=== PATIENT | male | born 1960 | race Caucasian/White ===

== ENCOUNTER 2018-03-17 17:01 | Emergency (ER) | payer OTHER, MEDICAID, SELFPAY ==
[2018-03-17] VITALS (9 sets, daily range): BP systolic 121–144; BP diastolic 62–93; PULSE 55–74; RESP 12–26; TEMP 36.7–37.4; O2SAT 97–100; BMI 20.6
--- NOTE | 2018-03-17 17:47 | DI.RAD.S_ITS ---
PROCEDURE: XR ACUTE ABDOMEN SERIES INDICATIONS: Abdominal pain TECHNIQUE: One view chest and two views of the abdomen were acquired. COMPARISON: None. FINDINGS: Surgical changes and devices: None. Chest: There is uniform opacification of the left lower hemithorax which partially obscured the cardiac silhouette. Calcification of the aortic arch noted. No pneumoperitoneum. Subcentimeter rounded opacities projecting over the bilateral midlung gonzalez, likely represent nipple shadows. Abdomen: The bowel gas pattern appears shifted to the right hemiabdomen and displaced from the left upper quadrant of the abdomen where there is a large uniform opacity. Imaged bowel loops do not appear obstructed. Bones: Multilevel degenerative changes of the lumbar spine. IMPRESSION: Uniform large opacity overlying the left lower hemithorax and left upper quadrant of the abdomen, which appears to displace bowel gas. This is concerning for severe splenomegaly (possibly with a left pleural effusion). Consider correlation with physical exam. Consider followup ultrasound or CT for further evaluation. Dictated by: Donald Santos M.D. on 03/17/2018 at 19:29 Approved by: Donald Santos M.D. on 03/17/2018 at 19:35
--- NOTE | 2018-03-17 18:02 | ED.ABDPAIN ---
HPI - Abdominal Pain <Natanael Graham DO - Last Filed: 03/18/18 09:29> General Chief Complaint: Abdominal Pain Stated Complaint: LUQ Pain Time Seen by Provider: 03/17/18 17:02 Source: patient and EMS Mode of arrival: EMS Limitations: no limitations History of Present Illness HPI narrative: 58-year-old male presents by would be EMS for evaluation of epigastric pain that is reminiscent of prior episodes of pancreatitis. The patient is a long-time drinker and thinks his prior episodes are related to alcohol. He denies any history of gallbladder disease. He has not dizzy nor weak or lightheaded. He denies any provocation or palliation of his discomfort. He does state that he had some loose stool yesterday that was dark in color. He denies the use of Motrin or blood thinners. He denies any history EGD or colonoscopy. MD complaint: abdominal pain Onset (ago): hour(s) Pain Consistency: constant Location: epigastric Severity: moderate Quality: cramping and aching Radiation: none Migration to: no migration Relieving factors: nothing Exacerbating factors: nothing Related Data Previous Rx's Medication Instructions Recorded hydrocodone-acetaminophen 1 tab PO Q4-6H PRN #14 tab 03/17/18 ondansetron [Zofran ODT] 4 mg PO Q6H PRN #14 tab 03/17/18 Allergies Allergy/AdvReac Type Severity Reaction Status Date / Time No Known Drug Allergies Allergy Verified 03/17/18 23:15 Review of Systems <DO Sheridan Zelaya Last Filed: 03/18/18 09:29> Review of Systems All systems reviewed & are unremarkable except as noted in HPI and below Constitutional Denies chills, Denies fever(s), Denies lethargy and Denies weakness Eyes Denies change in vision, Denies eye discharge, Denies irritation and Denies loss of vision ENT Ears, Nose, Mouth, and Throat: Denies change in voice, Denies neck pain and Denies sore throat Cardiovascular Denies chest pain, Denies irregular heart rhythm, Denies lightheadedness, Denies palpitations, Denies dyspnea, Denies dyspnea on exertion and Denies orthopnea Respiratory Denies cough, Denies dyspnea, Denies dyspnea on exertion and Denies wheezing Gastrointestinal Gastrointestinal: Reports abdominal pain, Denies change in bowel habits, Reports diarrhea, Denies nausea and Denies vomiting Genitourinary Denies hematuria, Denies flank pain, Denies urinary incontinence and Denies urinary urgency Musculoskeletal Denies neck pain Integumentary/Breasts Denies pruritus, Denies erythema, Denies rash and Denies wounds Neurologic Denies confusion, Denies loss of vision and Denies weakness Psychiatric Denies anxiety, Denies confusion, Denies depression, Denies homicidal ideation and Denies suicidal ideation Endocrine Denies palpitations Hematologic/Lymphatic Denies easy bruising Allergic/Immunologic Denies wheezing Exam <Natanael Graham, DO - Last Filed: 03/18/18 09:29> Narrative Exam Narrative: GENERAL: This is a well-nourished, well-developed patient, in mild distress. HEAD: Atraumatic. Normocephalic. No temporal or scalp tenderness. EYES: Pupils equal round and reactive. Extraocular motions intact. No scleral icterus. No injection or drainage. ENT: Nose without bleeding, purulent drainage or septal hematoma. Throat without erythema, tonsillar hypertrophy or exudate. Uvula midline. Airway patent. NECK: Trachea midline. No JVD or lymphadenopathy. Supple, nontender, no meningeal signs. CARDIOVASCULAR: Regular rate and rhythm without murmurs, gallops, or rubs. RESPIRATORY: Clear to auscultation. Breath sounds equal bilaterally. No wheezes, rales, or rhonchi. GASTROINTESTINAL: Abdomen soft, mild epigastric pain, nondistended. No hepato-splenomegaly, or palpable masses. No guarding. RECTAL: heme NEG EXTREMITIES: No clubbing, cyanosis, or edema. No joint tenderness, effusion, or edema noted. BACK: Nontender without deformity or crepitance. No flank tenderness. NEURO: AOx3. SKIN: No rash or erythema. Initial Vital Signs Initial Vital Signs: Vital Signs Temperature 99.4 F 03/17/18 17:12 Pulse Rate 55 L 03/17/18 17:12 Respiratory Rate 19 03/17/18 17:12 Blood Pressure 124/71 H 03/17/18 17:12 Pulse Oximetry 97 03/17/18 17:12 <Dayna Haro, DO - Last Filed: 03/18/18 03:12> Initial Vital Signs Initial Vital Signs: Vital Signs Temperature 99.4 F 03/17/18 17:12 Pulse Rate 55 L 03/17/18 17:12 Respiratory Rate 19 03/17/18 17:12 Blood Pressure 124/71 H 03/17/18 17:12 Pulse Oximetry 97 03/17/18 17:12 Course <Natanael Graham DO - Last Filed: 03/18/18 09:29> Orders Ordered: Discontinued Medications Hydrocodone Bitart/Acetaminophen (Vicodin Prepack) 1 bottle MISC SEEINSTR ONE Stop: 03/17/18 19:44 Last Admin: 03/17/18 19:54 Dose: 1 bottle Hydromorphone HCl (Dilaudid) 1 mg IV NOW ONE Stop: 03/17/18 17:55 Last Admin: 03/17/18 18:39 Dose: 1 mg Hydromorphone HCl (Dilaudid) 1 mg IV NOW ONE Stop: 03/17/18 21:40 Last Admin: 03/17/18 21:40 Dose: 1 mg Hydromorphone HCl (Dilaudid) 1 mg IV NOW ONE Stop: 03/17/18 23:16 Last Admin: 03/17/18 23:44 Dose: 1 mg Sodium Chloride (Normal Saline 0.9%) 1,000 mls @ 1,000 mls/hr IV BOLUS ONE Stop: 03/17/18 18:26 Last Infusion: 03/17/18 19:47 Dose: 0 mls/hr Admin: 03/17/18 18:38 Dose: 1,000 mls/hr Thiamine HCl 100 mg/ Dextrose 51 mls @ 204 mls/hr IV NOW ONE Stop: 03/17/18 22:13 Last Admin: 03/17/18 22:39 Dose: 204 mls/hr Ondansetron HCl (Zofran Odt Prepack) 1 bottle MISC SEEINSTR ONE Stop: 03/17/18 19:47 Last Admin: 03/17/18 19:54 Dose: 1 bottle Vital Signs - 8 hr 03/17/18 19:12 03/17/18 19:35 03/17/18 20:56 Temperature Pulse Rate 69 58 L 74 Respiratory Rate 26 H 17 20 Blood Pressure Blood Pressure [Right Arm] 132/79 H 138/79 H 144/75 H Pulse Oximetry 98 97 100 03/17/18 21:06 03/17/18 21:44 03/17/18 22:45 Temperature 98.0 F Pulse Rate 65 69 67 Respiratory Rate 14 16 12 Blood Pressure Blood Pressure [Right Arm] 121/62 H 123/86 H 138/82 H Pulse Oximetry 100 97 100 03/18/18 00:51 Temperature Pulse Rate 65 Respiratory Rate 14 Blood Pressure 132/84 H Blood Pressure [Right Arm] Pulse Oximetry 97 <Dayna Haro, - Last Filed: 03/18/18 03:12> Orders Ordered: Discontinued Medications Hydrocodone Bitart/Acetaminophen (Vicodin Prepack) 1 bottle MISC SEEINSTR ONE Stop: 03/17/18 19:44 Last Admin: 03/17/18 19:54 Dose: 1 bottle Hydromorphone HCl (Dilaudid) 1 mg IV NOW ONE Stop: 03/17/18 17:55 Last Admin: 03/17/18 18:39 Dose: 1 mg Hydromorphone HCl (Dilaudid) 1 mg IV NOW ONE Stop: 03/17/18 21:40 Last Admin: 03/17/18 21:40 Dose: 1 mg Hydromorphone HCl (Dilaudid) 1 mg IV NOW ONE Stop: 03/17/18 23:16 Last Admin: 03/17/18 23:44 Dose: 1 mg Sodium Chloride (Normal Saline 0.9%) 1,000 mls @ 1,000 mls/hr IV BOLUS ONE Stop: 03/17/18 18:26 Last Infusion: 03/17/18 19:47 Dose: 0 mls/hr Admin: 03/17/18 18:38 Dose: 1,000 mls/hr Thiamine HCl 100 mg/ Dextrose 51 mls @ 204 mls/hr IV NOW ONE Stop: 03/17/18 22:13 Last Admin: 03/17/18 22:39 Dose: 204 mls/hr Ondansetron HCl (Zofran Odt Prepack) 1 bottle MISC SEEINSTR ONE Stop: 03/17/18 19:47 Last Admin: 03/17/18 19:54 Dose: 1 bottle Vital Signs - 8 hr 03/17/18 19:12 03/17/18 19:35 03/17/18 20:56 Temperature Pulse Rate 69 58 L 74 Respiratory Rate 26 H 17 20 Blood Pressure Blood Pressure [Right Arm] 132/79 H 138/79 H 144/75 H Pulse Oximetry 98 97 100 03/17/18 21:06 03/17/18 21:44 03/17/18 22:45 Temperature 98.0 F Pulse Rate 65 69 67 Respiratory Rate 14 16 12 Blood Pressure Blood Pressure [Right Arm] 121/62 H 123/86 H 138/82 H Pulse Oximetry 100 97 100 03/18/18 00:51 Temperature Pulse Rate 65 Respiratory Rate 14 Blood Pressure 132/84 H Blood Pressure [Right Arm] Pulse Oximetry 97 MDM - Abdominal Pain <Natanael Graham DO - Last Filed: 03/18/18 09:29> Lab Data Result diagrams: 03/17/18 18:15 03/17/18 18:15 Lab Results 03/17/18 03/17/18 Range/Units 18:15 18:15 WBC 9.9 (4.5-11.0) X10^3/uL RBC 3.47 L (4.5-5.9) X10^6/uL Hgb 10.4 L (13.5-17.5) g/dL Hct 31.3 L (41-53) % MCV 90.0 (80-100) fL MCH 29.9 (26-34) PG MCHC 33.3 (30-36) % RDW 17.1 H (11.6-14.8) % Plt Count 529 H (150-400) X10^3/uL Neut % (Auto) 72.2 (50-75) % Lymph % (Auto) 15.1 L (25-40) % Bent % (Auto) 10.7 (3-14) % Eos % (Auto) 0.9 L (2-4) % Baso % (Auto) 1.1 (0-2) % Neut # (Auto) 7100 H (4066-3773) /uL Sodium 139 (137-145) mmol/L Potassium 4.2 (3.4-5.1) mmol/L Chloride 106 (98-107) mmol/L Carbon Dioxide 25 (22-32) mmol/L BUN 21 H (9-20) mg/dL Creatinine 1.00 (0.66-1.25) mg/dL Estimated GFR > 60.0 (>60) mL/min BUN/Creatinine Ratio 21.0 (6-22) Glucose 93 (70-100) mg/dL Calcium 9.3 (8.4-10.2) mg/dL Total Bilirubin 0.5 (0.2-1.3) mg/dL AST 31 (17-59) IU/L ALT 22 (21-72) IU/L Alkaline Phosphatase 116 (38-126) U/L Total Protein 6.2 L (6.3-8.2) g/dL Albumin 2.9 L (3.5-5.0) g/dL Globulin 3.3 (1.7-4.1) g/dL Albumin/Globulin Ratio 0.9 L (1.0-2.8) Lipase 416 H (23-300) U/L <Dayna Haro, DO - Last Filed: 03/18/18 03:12> Lab Data Attestation: I reviewed the patient's lab results. Lab Results 03/17/18 03/17/18 Range/Units 18:15 18:15 WBC 9.9 (4.5-11.0) X10^3/uL RBC 3.47 L (4.5-5.9) X10^6/uL Hgb 10.4 L (13.5-17.5) g/dL Hct 31.3 L (41-53) % MCV 90.0 (80-100) fL MCH 29.9 (26-34) PG MCHC 33.3 (30-36) % RDW 17.1 H (11.6-14.8) % Plt Count 529 H (150-400) X10^3/uL Neut % (Auto) 72.2 (50-75) % Lymph % (Auto) 15.1 L (25-40) % Bent % (Auto) 10.7 (3-14) % Eos % (Auto) 0.9 L (2-4) % Baso % (Auto) 1.1 (0-2) % Neut # (Auto) 7100 H (2411-8534) /uL Sodium 139 (137-145) mmol/L Potassium 4.2 (3.4-5.1) mmol/L Chloride 106 (98-107) mmol/L Carbon Dioxide 25 (22-32) mmol/L BUN 21 H (9-20) mg/dL Creatinine 1.00 (0.66-1.25) mg/dL Estimated GFR > 60.0 (>60) mL/min BUN/Creatinine Ratio 21.0 (6-22) Glucose 93 (70-100) mg/dL Calcium 9.3 (8.4-10.2) mg/dL Total Bilirubin 0.5 (0.2-1.3) mg/dL AST 31 (17-59) IU/L ALT 22 (21-72) IU/L Alkaline Phosphatase 116 (38-126) U/L Total Protein 6.2 L (6.3-8.2) g/dL Albumin 2.9 L (3.5-5.0) g/dL Globulin 3.3 (1.7-4.1) g/dL Albumin/Globulin Ratio 0.9 L (1.0-2.8) Lipase 416 H (23-300) U/L Imaging Data CT scan - abdomen: Radiologist's impression: PROCEDURE: CT ABDOMEN PELVIS W CON INDICATIONS: epigastric and LUQ pain, splenomegaly TECHNIQUE: After the administration of intravenous contrast, 5 mm thick sections acquired from the diaphragm to the symphysis. 5 mm coronal and sagittal reformats were acquired. For radiation dose reduction, the following was used: automated exposure control, adjustment of mA and/or kV according to patient size. COMPARISON: None. FINDINGS: Image quality: Excellent. ABDOMEN: Lung bases: Moderate-sized left pleural effusion with adjacent atelectasis. Solid organs: Liver is unremarkable. Small volume of perihepatic fluid noted. Gallbladder is distended. There is mild extrahepatic biliary ductal dilatation without focal stripping mass or stone. There is anterior left upper quadrant mesenteric fat stranding and edema. In the left upper quadrant of the abdomen there is a 20 cm craniocaudal by 21 cm anteroposterior by 15 cm peripherally circumscribed fluid collection encompassing the spleen. A majority of the fluid collection demonstrates attenuation characteristics slightly above simple fluid (15-25 Hounsfield units) although there is an indistinct area of higher attenuation posterior to the spleen that measures near 50 Hounsfield units. There is also a 4 cm smaller fluid collection in the anterior left upper quadrant of the abdomen adjacent the stomach. Peritoneum and bowel: Bowel loops demonstrate normal wall thickness and caliber. There is sigmoid colonic diverticulosis without evidence of acute diverticulitis. Moderate volume abdominal free fluid along the left paracolic gutter and pelvis. Nodes and vessels: No retroperitoneal or mesenteric adenopathy by size criteria. Aorta and inferior vena cava are normal in size. Moderate calcification of the abdominal aorta and branch vessels. Miscellaneous: No ventral hernias. PELVIS: Genitourinary: Bladder wall thickness is normal. Miscellaneous: No inguinal hernias or adenopathy. Bones: No suspicious bony lesions. No vertebral body compression fractures. Multilevel degenerative changes of the spine the superior endplate Schmorl's node at L1. IMPRESSION: #1. 21 x 20 x 15 cm peripherally circumscribed fluid collection in the left upper quadrant of the abdomen that completely encompasses and compresses the spleen. A majority of the fluid measures slightly above simple attenuation and may represent blood breakdown products, while there is an indistinct area/blush of higher attenuation just posterior to the spleen that is concerning for active hemorrhage. Differential considerations include a large pancreatic pseudocyst encompassing the spleen versus a large subcapsular hematoma with continual hemorrhage. #2. Additional 4 cm oval circumscribed fluid collection in the anterior left upper quadrant of the abdomen with surrounding inflammatory fat stranding, also concerning for a pseudocyst. These findings were discussed with [facility] emergency room physician Dr. Whitney Haro and on [facility] surgeon Dr. Farhat Sheehan at approximately 9:30 PM on 03/17/[address] Santos. Dictated by: Donald Santos M.D. on 03/17/2018 at 21:40 MDM Narrative Medical decision making narrative: I have spoken with surgery Dr. Kovacs who has reviewed the CT and seen and evaluate patient. His he states that patient would likely benefit from embolization does not necessarily need splenectomy at this time. Recommends transfer. I spoke to the [facility], Dr. Payan to the ED physician has been updated on test results and symptoms accepts transfer. The general surgeon has been notified, by the transfer Center. Discharge Plan Departure Patient Disposition: [facility] Clinical Impression: Hemorrhage of spleen, Pancreatitis, Pleural effusion Discharge Date/Time: 03/18/18 00:51 Interventions: ED Discharge Assessment Last Done: 03/18/18 00:51 Instructions: Acute Pancreatitis Prescriptions: New hydrocodone-acetaminophen 5-325 mg tablet 1 tab PO Q4-6H PRN (Reason: pain) Qty: 14 RF: 0 ondansetron [Zofran ODT] 4 mg tablet,disintegrating 4 mg PO Q6H PRN (Reason: nausea and vomiting) Qty: 14 RF: 0 ED Cosign/Signout <Natanael Corozal, DO - Last Filed: 03/18/18 09:29> Cosign ED Attending Cosignature Attestation: I was immediately available in the department for consultation. Documentation has been reviewed. I agree with assessment and plan. <Dayna Haro, DO - Last Filed: 03/18/18 03:12> Sign Out Provider Sign Out Attestation: The patient is signed out to me at shift change by Dr. Graham. I have seen and evaluated patient myself. He remains stable but is tender in the left upper quadrant. He reports that it has been ongoing for the last 3 weeks he denies any trauma. Thought it was pancreatitis. Currently awaiting CT abdomen results.
[2018-03-17 18:24] LABS: Add Manual Diff / Slide Review NO; Basophils Percent Auto 1.1 % (0-2); Eosinophils Percent Auto 0.9 % (2-4); Hematocrit 31.3 % (41-53); Hemoglobin 10.4 g/dL (13.5-17.5); Lymphocytes Percent Auto 15.1 % (25-40); Mean Corpuscular HGB Conc 33.3 % (30-36); Mean Corpuscular Hemoglobin 29.9 PG (26-34); Monocytes Percent Auto 10.7 % (3-14); Neutrophils Absolute Auto 7100 /uL (3000-5900); Neutrophils Percent Auto 72.2 % (50-75); Platelet Count 529 X10^3/uL (150-400); Red Blood Cell Count 3.47 X10^6/uL (4.5-5.9); Red Cell Distribution Width 17.1 % (11.6-14.8); White Blood Cell Count 9.9 X10^3/uL (4.5-11.0)
[2018-03-17] MEDS: SODIUM CHLORIDE 0.9% 1,000 ML 1000 ML IV (18:38)
[2018-03-17] MEDS: HYDROMORPHONE 1 MG INJ IV ×3 (18:39→23:44)
[2018-03-17 18:54] LABS: Alanine Aminotransferase 22 IU/L (21-72); Albumin 2.9 g/dL (3.5-5.0); Albumin Globulin Ratio 0.9 (1.0-2.8); Alkaline Phosphatase 116 U/L (38-126); Aspartate Aminotransferase 31 IU/L (17-59); Bilirubin Total 0.5 mg/dL (0.2-1.3); Blood Urea Nitrogen 21 mg/dL (9-20); Calcium 9.3 mg/dL (8.4-10.2); Carbon Dioxide 25 mmol/L (22-32); Chloride 106 mmol/L (98-107); Estimated Glomerular Filt Rate > 60.0 mL/min (>60); Globulin 3.3 g/dL (1.7-4.1); Glucose 93 mg/dL (70-100); HEMOLYSIS < 15 (0-50); Lipase 416 U/L (23-300); Potassium 4.2 mmol/L (3.4-5.1); Sodium 139 mmol/L (137-145); Total Protein 6.2 g/dL (6.3-8.2)
[2018-03-17] MEDS: ONDANSETRON 4 MG ODT PREPACK 1 BOTTLE MISC (19:54)
[2018-03-17] MEDS: HYDROCODONE/ACET 5/325 PREPACK 1 BOTTLE MISC (19:54)
--- NOTE | 2018-03-17 20:02 | DI.CT.S_ITS ---
PROCEDURE: CT ABDOMEN PELVIS W CON INDICATIONS: epigastric and LUQ pain, splenomegaly TECHNIQUE: After the administration of intravenous contrast, 5 mm thick sections acquired from the diaphragm to the symphysis. 5 mm coronal and sagittal reformats were acquired. For radiation dose reduction, the following was used: automated exposure control, adjustment of mA and/or kV according to patient size. COMPARISON: None. FINDINGS: Image quality: Excellent. ABDOMEN: Lung bases: Moderate-sized left pleural effusion with adjacent atelectasis. Solid organs: Liver is unremarkable. Small volume of perihepatic fluid noted. Gallbladder is distended. There is mild extrahepatic biliary ductal dilatation without focal stripping mass or stone. There is anterior left upper quadrant mesenteric fat stranding and edema. In the left upper quadrant of the abdomen there is a 20 cm craniocaudal by 21 cm anteroposterior by 15 cm peripherally circumscribed fluid collection encompassing the spleen. A majority of the fluid collection demonstrates attenuation characteristics slightly above simple fluid (15-25 Hounsfield units) although there is an indistinct area of higher attenuation posterior to the spleen that measures near 50 Hounsfield units. There is also a 4 cm smaller fluid collection in the anterior left upper quadrant of the abdomen adjacent the stomach. Peritoneum and bowel: Bowel loops demonstrate normal wall thickness and caliber. There is sigmoid colonic diverticulosis without evidence of acute diverticulitis. Moderate volume abdominal free fluid along the left paracolic gutter and pelvis. Nodes and vessels: No retroperitoneal or mesenteric adenopathy by size criteria. Aorta and inferior vena cava are normal in size. Moderate calcification of the abdominal aorta and branch vessels. Miscellaneous: No ventral hernias. PELVIS: Genitourinary: Bladder wall thickness is normal. Miscellaneous: No inguinal hernias or adenopathy. Bones: No suspicious bony lesions. No vertebral body compression fractures. Multilevel degenerative changes of the spine the superior endplate Schmorl's node at L1. IMPRESSION: #1. 21 x 20 x 15 cm peripherally circumscribed fluid collection in the left upper quadrant of the abdomen that completely encompasses and compresses the spleen. A majority of the fluid measures slightly above simple attenuation and may represent blood breakdown products, while there is an indistinct area/blush of higher attenuation just posterior to the spleen that is concerning for active hemorrhage. Differential considerations include a large pancreatic pseudocyst encompassing the spleen versus a large subcapsular hematoma with continual hemorrhage. #2. Additional 4 cm oval circumscribed fluid collection in the anterior left upper quadrant of the abdomen with surrounding inflammatory fat stranding, also concerning for a pseudocyst. These findings were discussed with [facility] emergency room physician Dr. Whitney Haro and on [facility] surgeon Dr. Farhat Sheehan at approximately 9:30 PM on 03/17/[address] Santos. Dictated by: Donald Santos M.D. on 03/17/2018 at 21:40 Approved by: Donald Santos M.D. on 03/17/2018 at 21:57
--- NOTE | 2018-03-17 22:06 | P.CONS_ITS ---
History of Present Illness Date Patient Seen: 03/17/18 Time Patient Seen: 21:52 Chief complaint: LUQ Pain Reason for consult: LUQ abominal pain with likely splenic trauma Requesting provider: Dayna Haro Narrative: Very pleasant 58-year-old male I am asked to evaluated by Dr Haro for splenomegaly vs ? for evaluation of epigastric pain that is reminiscent of prior episodes of pancreatitis. The patient is a long-time drinker and thinks his prior episodes are related to alcohol. He has a history of a gastric tube and removal placed at time of maxillary resection. He continues to drink and smoke. He can not recall any trauma, no bump or minor injury to his left abdomen, no retching. He denies any history of gallbladder disease. He has not dizzy nor weak or lightheaded. He denies any provocation or palliation of his discomfort. He does state that he had some loose stool yesterday that was dark in color. He denies the use of Motrin or blood thinners. He denies any history EGD or colonoscopy. My read of the CT scan shows a very compressed spleen with massive fluid collection in the LUQ and likely reactive left pleural effusion. He has an active blush posteriorly c/w a splenic injury with small lateral splenic injury suspect. I called and asked Dr. Santos the on-call radiologist who agreed with me- full read of the CT had not yet been completed. Other possibility includes massive pseudocyst with bleeding into the cyst-less likely. complaint: abdominal pain Pain Consistency: constant Location: epigastric Severity: moderate Quality: cramping and aching Radiation: none Migration to: no migration Relieving factors: nothing Exacerbating factors: nothing PFSH Medical History Pancreatitis (Acute) Maxillary sinus cancer (Acute) Alcoholism (Acute) Social History Smoking Status: Current every day smoker Comment: Continue to drink a few beers or more per day. I hate my life depression suspected. has 2 children with of 33 yoa. Children ages 7 and 9 yo. Meds Home Medications Medication Instructions Recorded Confirmed Type hydrocodone-acetaminophen 1 tab PO Q4-6H PRN #14 tab 03/17/18 Rx ondansetron [Zofran ODT] 4 mg PO Q6H PRN #14 tab 03/17/18 Rx Review of Systems Review of Systems All systems reviewed & are unremarkable except as noted in HPI and below Exam Vital Signs (past 8 hours): - 03/17/18 17:12 03/17/18 18:14 03/17/18 18:46 Temperature 99.4 F Pulse Rate 55 L 72 68 Respiratory Rate 19 19 22 Blood Pressure 124/71 H Blood Pressure [Right Arm] 139/93 H 143/74 H Pulse Oximetry 97 98 98 03/17/18 19:12 03/17/18 19:35 03/17/18 20:56 Temperature Pulse Rate 69 58 L 74 Respiratory Rate 26 H 17 20 Blood Pressure Blood Pressure [Right Arm] 132/79 H 138/79 H 144/75 H Pulse Oximetry 98 97 100 03/17/18 21:06 03/17/18 21:44 Temperature Pulse Rate 65 69 Respiratory Rate 14 16 Blood Pressure Blood Pressure [Right Arm] 121/62 H 123/86 H Pulse Oximetry 100 97 Oxygen Delivery Method Room Air Oxygen Flow Rate 0 Const General: cooperative, comfortable, well groomed and frail appearing Nutritional Appearance: cachectic, malnourished and thin Orientation: alert, awake and oriented x3 HENMT Ears: hearing grossly normal bilaterally Nose: external nose normal Other: False maxialla with obvious facial abnormality secondary to surgery. Eyes General: appearance normal, both eyes and all related structures Neck Neck: normal visual inspection Chest Chest: normal inspection of the chest Resp Auscultation: clear to auscultation bilaterally, diminished lung sounds on the left, no rales, no rhonchi and no wheezes Cardio Rate: regular rate Rhythm: regular rhythm Heart Sounds: S1 normal and S2 normal GI Inspection: incision (percutenous incision at left central costal region c/w prior gastric tube well healed.), scaphoid and scar Palpation: firm (On right, ) and tender (Left upper quadrant tender, firm. No R upper, R lower, left lower quadrant tenderness. Fullness appreciated in left side. ) Percussion: abnormal to percussion General: No CVA tenderness (left sided posterior tenderness c/w LUQ abdominal pain.) Back/Spine/Pelvis Back: normal to inspection Skin General: no rashes or lesions noted, atrophy and No jaundice Other: Changes in skin c/w poor nutrition. Neuro General: alert, awake and oriented x3 Motor: muscle tone normal throughout Extrem General: normal to inspection Psych Appearance: grossly normal Mental Status: mental status grossly normal Speech and Movement: speech and movement normal Attitude: cooperative Thought Process: normal Thought Content: normal Judgment: judgment good Objective Imaging CT scan - abdomen: My impression: Massive fluid collection compressing spleen with active blush posteriorly, discussed with Dr. Tom frederick and Estrellita at bedside. Radiologist's impression: Patient: Wicho Hutson#: [id number] : 9Acct:[id number] Age/Sex: 58 / MDate of Service: 03/17/18 Loc: ED Accession Number: [id number] Procedure: CT abdomen pelvis w con Ordering Provider: Natanael Graham D.O. PROCEDURE: CT ABDOMEN PELVIS W CON INDICATIONS: epigastric and LUQ pain, splenomegaly TECHNIQUE: After the administration of intravenous contrast, 5 mm thick sections acquired from the diaphragm to the symphysis. 5 mm coronal and sagittal reformats were acquired. For radiation dose reduction, the following was used: automated exposure control, adjustment of mA and/or kV according to patient size. COMPARISON: None. FINDINGS: Image quality: Excellent. ABDOMEN: Lung bases: Moderate-sized left pleural effusion with adjacent atelectasis. Solid organs: Liver is unremarkable. Small volume of perihepatic fluid noted. Gallbladder is distended. There is mild extrahepatic biliary ductal dilatation without focal stripping mass or stone. There is anterior left upper quadrant mesenteric fat stranding and edema. In the left upper quadrant of the abdomen there is a 20 cm craniocaudal by 21 cm anteroposterior by 15 cm peripherally circumscribed fluid collection encompassing the spleen. A majority of the fluid collection demonstrates attenuation characteristics slightly above simple fluid (15-25 Hounsfield units) although there is an indistinct area of higher attenuation posterior to the spleen that measures near 50 Hounsfield units. There is also a 4 cm smaller fluid collection in the anterior left upper quadrant of the abdomen adjacent the stomach. Peritoneum and bowel: Bowel loops demonstrate normal wall thickness and caliber. There is sigmoid colonic diverticulosis without evidence of acute diverticulitis. Moderate volume abdominal free fluid along the left paracolic gutter and pelvis. Nodes and vessels: No retroperitoneal or mesenteric adenopathy by size criteria. Aorta and inferior vena cava are normal in size. Moderate calcification of the abdominal aorta and branch vessels. Miscellaneous: No ventral hernias. PELVIS: Genitourinary: Bladder wall thickness is normal. Miscellaneous: No inguinal hernias or adenopathy. Bones: No suspicious bony lesions. No vertebral body compression fractures. Multilevel degenerative changes of the spine the superior endplate Schmorl's node at L1. IMPRESSION: #1. 21 x 20 x 15 cm peripherally circumscribed fluid collection in the left upper quadrant of the abdomen that completely encompasses and compresses the spleen. A majority of the fluid measures slightly above simple attenuation and may represent blood breakdown products, while there is an indistinct area/blush of higher attenuation just posterior to the spleen that is concerning for active hemorrhage. Differential considerations include a large pancreatic pseudocyst encompassing the spleen versus a large subcapsular hematoma with continual hemorrhage. #2. Additional 4 cm oval circumscribed fluid collection in the anterior left upper quadrant of the abdomen with surrounding inflammatory fat stranding, also concerning for a pseudocyst. These findings were discussed with [facility] emergency room physician Dr. Whitney Haro and on [facility] surgeon Dr. Farhat Sheehan at approximately 9:30 PM on 03/17/[address] Santos. Dictated by: Donald Santos M.D. on 03/17/2018 at 21:40 Approved by: Donald Santos M.D. on 03/17/2018 at 21:57 Chest x-ray: My impression: Left pleural effusion and left hemidiaphragm elevation. Radiologist's impression: Signed Patient: Wicho Hutson#: [id number] : 9Acct:[id number] Age/Sex: 58 / MDate of Service: 03/17/18 Loc: ED Accession Number: [id number] Procedure: XR acute abdomen series Ordering Provider: Natanael Graham D.O. PROCEDURE: XR ACUTE ABDOMEN SERIES INDICATIONS: Abdominal pain TECHNIQUE: One view chest and two views of the abdomen were acquired. COMPARISON: None. FINDINGS: Surgical changes and devices: None. Chest: There is uniform opacification of the left lower hemithorax which partially obscured the cardiac silhouette. Calcification of the aortic arch noted. No pneumoperitoneum. Subcentimeter rounded opacities projecting over the bilateral midlung gonzalez, likely represent nipple shadows. Abdomen: The bowel gas pattern appears shifted to the right hemiabdomen and displaced from the left upper quadrant of the abdomen where there is a large uniform opacity. Imaged bowel loops do not appear obstructed. Bones: Multilevel degenerative changes of the lumbar spine. IMPRESSION: Uniform large opacity overlying the left lower hemithorax and left upper quadrant of the abdomen, which appears to displace bowel gas. This is concerning for severe splenomegaly (possibly with a left pleural effusion). Consider correlation with physical exam. Consider followup ultrasound or CT for further evaluation. Labs Result Diagrams: 03/17/18 18:15 03/17/18 18:15 Labs: Laboratory Results - last 24 hr 03/17/18 03/17/18 18:15 18:15 WBC 9.9 RBC 3.47 L Hgb 10.4 L Hct 31.3 L MCV 90.0 MCH 29.9 MCHC 33.3 RDW 17.1 H Plt Count 529 H Neut % (Auto) 72.2 Lymph % (Auto) 15.1 L [place] % (Auto) 10.7 Eos % (Auto) 0.9 L Baso % (Auto) 1.1 Neut # (Auto) 7100 H Sodium 139 Potassium 4.2 Chloride 106 Carbon Dioxide 25 BUN 21 H Creatinine 1.00 Estimated GFR > 60.0 BUN/Creatinine Ratio 21.0 Glucose 93 Calcium 9.3 Total Bilirubin 0.5 AST 31 ALT 22 Alkaline Phosphatase 116 Total Protein 6.2 L Albumin 2.9 L Globulin 3.3 Albumin/Globulin Ratio 0.9 L Lipase 416 H Assessment & Plan (1) History of gastrostomy tube placement: Current visit: Yes Status: Acute (2) Splenic hemorrhage: Problem details: Patient is a high risk for continued bleeding but is currently stable and requires higher level of hospital care. He may not require splenectomy but does require a hospital with IR capability and a blood bank access. This clearly outstrips [facility]. In addition his history of Gtube and malnutrition and large likely hematoma make any operation likely more complex. Certainly avoiding urgent operation is graff. Current visit: Yes Status: Acute (3) Malnutrition of moderate degree: Problem details: Thiamine IV prior to discharge Current visit: Yes Status: Acute (4) History of oral cancer: Current visit: Yes Status: Acute (5) History of malignant neoplasm of oral cavity: Current visit: Yes Status: Acute Time Spent With Patient Time with patient: Greater than 35 minutes
[2018-03-17] MEDS: THIAMINE 100 MG in DEXTROSE 5 % IN WATER 50 ML 204 ML IV (22:39)
--- NOTE | 2018-03-17 23:44 | PC.NURSE ---
After decision made to transfer pt, prepacks of vicodin/zofran returned to [facility] room
[2018-03-18 00:51] VITALS: BP 132/84; PULSE 65; RESP 14; O2SAT 97
== END 2018-03-18 00:51 | disposition short-term general hospital (02) ==
PROVIDERS: Emergency Medicine; Emergency Provider Emergency Medicine
DX: D73.89 Other diseases of spleen (principal); K85.90 Acute pancreatitis without necrosis or infection, unspecified; J90 Pleural effusion, not elsewhere classified
CPT/HCPCS: 36415; 74022; 74177; 80053; 83690; 85025; 96361; 96374; 96375; 96376; 99283; 99285; J1170; Q9967

== ENCOUNTER 2018-04-02 03:07 | Emergency (ER) | payer OTHER, MEDICAID, SELFPAY ==
[2018-04-02 03:14] VITALS: BP 145/82; PULSE 84; RESP 18; TEMP 36.8; O2SAT 100
--- NOTE | 2018-04-02 03:17 | DI.CT.S_ITS ---
PROCEDURE: CT HEAD/BRAIN WO CON INDICATIONS: syncope, fall, possible head injury, heavy etoh TECHNIQUE: Noncontrast 4.5 mm thick angled axial sections acquired from the foramen magnum to the vertex, with coronal and sagittal reformats. For radiation dose reduction, the following was used: automated exposure control, adjustment of mA and/or kV according to patient size. COMPARISON: [facility], CR, XR ACUTE ABDOMEN SERIES, 03/17/2018, 17:33. FINDINGS: Image quality: Excellent. CSF spaces: Basal cisterns are patent. No extra-axial fluid collections. The ventricles are symmetric in size and shape. Brain: No intracranial bleeds or masses. Chronic appearing right parietal encephalomalacia. There is cerebral volume loss greater than expected for age, with resultant ventricular and sulcal prominence. There are periventricular and deep white matter chronic small vessel ischemic changes. There is intracranial internal carotid artery atherosclerosis. Skull and face: Calvarium and visualized facial bones appear intact, without suspicious lesions. Mild left posterior scalp swelling. If there is sufficient clinical suspicion, a maxillofacial CT could be performed. Sinuses: There is left maxillary sinus mucosal thickening IMPRESSION: No acute intracranial process. Chronic appearing right parietal encephalomalacia. Mild left posterior scalp swelling. Sinus disease as above. Dictated by: Chris Rowe M.D. on 04/02/2018 at 7:41 Approved by: Chris Rowe M.D. on 04/02/2018 at 7:44
--- NOTE | 2018-04-02 03:20 | ED_ITS ---
HPI - Alcohol General Chief Complaint: Toxicology Problem Stated Complaint: GLF, ETOH Time Seen by Provider: 04/02/18 03:14 Source: patient and EMS Mode of arrival: EMS Limitations: no limitations History of Present Illness HPI narrative: 58-year-old male with history of maxillary cancer, pancreatitis and a splenic hemorrhage presents to the emergency department with significant alcohol use over the course of the day and a possible syncopal event. The family heard a loud thud and found him laying on the ground and EMS was notified. The patient complains of some back pain which is apparently chronic and pain in his left upper quadrant. He was recently at our facility and transferred to [facility] after a large splenic hemorrhage was noted. He was transferred there and I successful drainage was completed and he was discharged with encouragement for follow-up in 2 weeks for repeat imaging. He denies passing out but is unclear on how he fell. He does not think he hit his head but, again, he is under the influence of alcohol. He denies any chest pain or shortness of breath MD complaint: alcohol intoxication Last drink: just prior to this admission Chronic alcohol use: Yes Previous visits for alcohol intoxication: No Recent trauma: Yes Associated symptoms: syncope and abdominal pain Treatments prior to arrival: none Related Data Previous Rx's Medication Instructions Recorded hydrocodone-acetaminophen 1 tab PO Q4-6H PRN #14 tab 03/17/18 ondansetron [Zofran ODT] 4 mg PO Q6H PRN #14 tab 03/17/18 Allergies Allergy/AdvReac Type Severity Reaction Status Date / Time No Known Drug Allergies Allergy Verified 03/17/18 23:15 Review of Systems Review of Systems All systems reviewed & are unremarkable except as noted in HPI and below Constitutional Denies chills, Denies fever(s), Denies lethargy and Denies weakness Eyes Denies change in vision, Denies eye discharge, Denies irritation and Denies loss of vision ENT Ears, Nose, Mouth, and Throat: Denies change in voice, Denies neck pain and Denies sore throat Cardiovascular Denies chest pain, Denies irregular heart rhythm, Denies lightheadedness, Denies palpitations, Denies dyspnea, Denies dyspnea on exertion and Denies orthopnea Respiratory Denies cough, Denies dyspnea, Denies dyspnea on exertion and Denies wheezing Gastrointestinal Gastrointestinal: Reports abdominal pain, Denies change in bowel habits, Denies diarrhea, Denies nausea and Denies vomiting Genitourinary Denies hematuria, Denies flank pain, Denies urinary incontinence and Denies urinary urgency Musculoskeletal Reports back pain and Denies neck pain Integumentary/Breasts Denies pruritus, Denies erythema, Denies rash and Denies wounds Neurologic Denies confusion, Denies loss of vision and Denies weakness Psychiatric Denies anxiety, Denies confusion, Denies depression, Denies homicidal ideation and Denies suicidal ideation Endocrine Denies palpitations Hematologic/Lymphatic Denies easy bruising Allergic/Immunologic Denies wheezing PFSH Medical History Pancreatitis (Acute) Maxillary sinus cancer (Acute) Alcoholism (Acute) Social History Smoking Status: Current every day smoker Exam Narrative Exam Narrative: 58-year-old male, slightly slurring his words, obviously under the influence of alcohol complaining of left-sided abdominal pain Initial Vital Signs Initial Vital Signs: Vital Signs Temperature 98.2 F 04/02/18 03:14 Pulse Rate 84 04/02/18 03:14 Respiratory Rate 18 04/02/18 03:14 Blood Pressure 145/82 H 04/02/18 03:14 Pulse Oximetry 100 04/02/18 03:14 Const General: cooperative, well developed and in distress Nutritional Appearance: malnourished Orientation: alert, awake, oriented x3 and not confused [facility] Head: normal to inspection Ears: hearing grossly normal bilaterally Nose: external nose normal Mouth: other (abnormal facial symetry) Eyes General: appearance normal, both eyes and all related structures Eyelids: eyelids normal Conjunctivae: conjunctivae normal Sclera: sclerae normal Pupils: PERRL EOM: EOM intact bilaterally Neck Neck: normal visual inspection, trachea midline, No lymphadenopathy, No midline deformity and No JVD Lymphatic: No lymphedema Resp Effort & Inspection: normal respiratory effort, able to speak in complete sentences, no respiratory distress and no use of accessory muscles Auscultation: clear to auscultation bilaterally, no rales, no rhonchi and no wheezes Cardio Rate: regular rate Rhythm: regular rhythm Heart Sounds: no click, no gallops, no murmurs and no rubs Pulses: normal peripheral pulses GI Inspection: non-distended Palpation: soft, No guarding, No pulsatile mass and tender (Patient has tenderness, firmness and some ecchymosis in his left upper quadrant with an appropriately healing drainage site) Auscultation: normal bowel sounds Back/Spine/Pelvis Back: back tenderness Sacroiliac Joints: nontender Sacrum: no ecchymosis Skin General: no rashes or lesions noted, No jaundice and No petechiae Neuro General: alert, awake and oriented x3 Speech: abnormal speech (Slightly slurred) Motor: muscle tone normal throughout Sensory Exam: no sensory deficits noted Course Orders Ordered: ED Orders 04/02/18 03:15 EKG-12 Lead Stat 04/02/18 03:17 CT head/brain wo con Stat 04/02/18 03:46 CT abdomen pelvis w con Stat 04/02/18 03:50 Complete Blood Count AUTO DIFF Stat Comprehensive Metabolic Panel Stat Ethanol (ETOH) Stat Partial Thromboplastin Time Stat Prothrombin Time INR Stat Troponin & CK Cardiac Panel Stat Type and Screen Stat Discontinued Medications Hydromorphone HCl (Dilaudid) 0.5 mg IV NOW ONE Stop: 04/02/18 06:20 Last Admin: 04/02/18 06:25 Dose: 0.5 mg Consultations Consultation #1: call to [facility] Time: 05:44 Consultation #2: [facility] states 850mL drained from pseudocyst which indicates reaccumulation of blood Patient remains hemodynamically stable, blood pressure in the 110s, H&H remained stable Transfer center reached the patient's surgeon, Dr. Desouza, who suggest we transfer patient to their emergency department. I have spoken with Dr. Moran who was happy to accept this patient. We agree that given potential for rapid deterioration, long distance that patient is most appropriately transported by aeromedical transport Time: 07:17 Vital Signs - 8 hr 04/02/18 03:14 04/02/18 04:04 04/02/18 04:54 Temperature 98.2 F Pulse Rate 84 64 66 Respiratory Rate 18 13 14 Blood Pressure 145/82 H Blood Pressure [Right Arm] 130/89 H 132/75 H Pulse Oximetry 100 100 99 04/02/18 06:01 04/02/18 06:37 Temperature Pulse Rate 67 63 Respiratory Rate 11 L 11 L Blood Pressure Blood Pressure [Right Arm] 131/88 H 127/77 H Pulse Oximetry 99 99 MDM - Alcohol Medical Records Attestation: I reviewed the patient's medical records. Lab Data Attestation: I reviewed the patient's lab results. Result diagrams: 04/02/18 03:50 04/02/18 03:50 Labs: Lab Results 04/02/18 04/02/18 04/02/18 Range/Units 03:50 03:50 03:50 WBC 6.2 (4.5-11.0) X10^3/uL RBC 4.14 L (4.5-5.9) X10^6/uL Hgb 12.4 L (13.5-17.5) g/dL Hct 37.2 L (41-53) % MCV 89.8 (80-100) fL MCH 29.9 (26-34) PG MCHC 33.3 (30-36) % RDW 18.1 H (11.6-14.8) % Plt Count 361 (150-400) X10^3/uL Neut % (Auto) 62.1 (50-75) % Lymph % (Auto) 25.8 (25-40) % [place] % (Auto) 7.1 (3-14) % Eos % (Auto) 3.4 (2-4) % Baso % (Auto) 1.6 (0-2) % Neut # (Auto) 3800 (7905-2044) /uL PT (10.1-12.7) SECONDS INR (0.9-1.3) APTT (26.4-36.2) SECONDS Sodium 138 (137-145) mmol/L Potassium 3.8 (3.4-5.1) mmol/L Chloride 99 (98-107) mmol/L Carbon Dioxide 25 (22-32) mmol/L BUN 9 (9-20) mg/dL Creatinine 0.70 (0.66-1.25) mg/dL Estimated GFR > 60.0 (>60) mL/min BUN/Creatinine Ratio 12.9 (6-22) Glucose 90 (70-100) mg/dL Calcium 8.4 (8.4-10.2) mg/dL Total Bilirubin 0.4 (0.2-1.3) mg/dL AST 47 (17-59) IU/L ALT 28 (21-72) IU/L Alkaline Phosphatase 128 H (38-126) U/L Total Creatine Kinase 31 L (55-170) U/L Troponin I < 0.012 (0.01-0.034) ng/mL Total Protein 7.0 (6.3-8.2) g/dL Albumin 3.6 (3.5-5.0) g/dL Globulin 3.4 (1.7-4.1) g/dL Albumin/Globulin Ratio 1.1 (1.0-2.8) Ethyl Alcohol 210 mg/dL Blood Type O Positive Antibody Screen Negative 04/02/18 Range/Units 03:50 WBC (4.5-11.0) X10^3/uL RBC (4.5-5.9) X10^6/uL Hgb (13.5-17.5) g/dL Hct (41-53) % MCV (80-100) fL MCH (26-34) PG MCHC (30-36) % RDW (11.6-14.8) % Plt Count (150-400) X10^3/uL Neut % (Auto) (50-75) % Lymph % (Auto) (25-40) % [place] % (Auto) (3-14) % Eos % (Auto) (2-4) % Baso % (Auto) (0-2) % Neut # (Auto) (2449-3723) /uL PT 12.3 (10.1-12.7) SECONDS INR 1.1 (0.9-1.3) APTT 35 (26.4-36.2) SECONDS Sodium (137-145) mmol/L Potassium (3.4-5.1) mmol/L Chloride (98-107) mmol/L Carbon Dioxide (22-32) mmol/L BUN (9-20) mg/dL Creatinine (0.66-1.25) mg/dL Estimated GFR (>60) mL/min BUN/Creatinine Ratio (6-22) Glucose (70-100) mg/dL Calcium (8.4-10.2) mg/dL Total Bilirubin (0.2-1.3) mg/dL AST (17-59) IU/L ALT (21-72) IU/L Alkaline Phosphatase (38-126) U/L Total Creatine Kinase (55-170) U/L Troponin I (0.01-0.034) ng/mL Total Protein (6.3-8.2) g/dL Albumin (3.5-5.0) g/dL Globulin (1.7-4.1) g/dL Albumin/Globulin Ratio (1.0-2.8) Ethyl Alcohol mg/dL Blood Type Antibody Screen Imaging Data CT scan - abdomen: Radiologist's impression: stable 20cm craniocaudal fluid collection encompassing spleen and compressing spleen Discharge Plan Departure Patient Disposition: [facility] Clinical Impression: Hemorrhage of spleen Prescriptions: No Action hydrocodone-acetaminophen 5-325 mg tablet 1 tab PO Q4-6H PRN (Reason: pain) Qty: 14 RF: 0 ondansetron [Zofran ODT] 4 mg tablet,disintegrating 4 mg PO Q6H PRN (Reason: nausea and vomiting) Qty: 14 RF: 0
--- NOTE | 2018-04-02 03:46 | DI.CT.S_ITS ---
PROCEDURE: CT ABDOMEN PELVIS W CON INDICATIONS: Left sided abdominal pain, recent procedure for drainage TECHNIQUE: After the administration of intravenous contrast, 5 mm thick sections acquired from the diaphragm to the symphysis. 5 mm coronal and sagittal reformats were acquired. For radiation dose reduction, the following was used: automated exposure control, adjustment of mA and/or kV according to patient size. COMPARISON: [facility], CT, CT ABDOMEN PELVIS W CON, 03/17/2018, 20:25. FINDINGS: Image quality: Excellent. ABDOMEN: Lung bases: Moderate-sized left-sided pleural effusion has increased in size compared to 03/17/2018. Compressive atelectasis in the right lung bases are demonstrated. Heart size is normal. Atherosclerotic calcifications noted in the visualized left coronary vasculature. Solid organs: Liver is normal in size and enhancement. Gallbladder is within normal limits. Biliary system is non dilated. The distal body and tail of pancreas appear atrophied. There is a large 20 x 15 x 20 cm fluid collection surrounding the spleen which is stable in size and contour compared to 03/17/2018. The perisplenic fluid collection is having marked mass effect on the spleen and the stomach and is causing inferior displacement of the left kidney. Smaller 4 cm fluid collection adjacent to the stomach has resolved in interval since prior exam obtained 03/17/2018. Trace fluid in the left paracolic gutter. No adrenal nodules. Kidneys demonstrate normal size and enhancement, without hydronephrosis. Peritoneum and bowel: Mildly dilated loops of proximal small bowel noted. Scattered diverticuli noted in the colon without evidence of diverticulitis. No free fluid or air. Nodes and vessels: No retroperitoneal or mesenteric adenopathy by size criteria. Aorta and inferior vena cava are normal in size. Scattered atherosclerotic calcifications involving the abdominal and pelvic vasculature. Miscellaneous: No ventral hernias. PELVIS: Genitourinary: Bladder wall thickness is normal. Miscellaneous: No inguinal hernias or adenopathy. Bones: No suspicious bony lesions. No vertebral body compression fractures. Spine degenerative disc disease and facet arthropathy. Large Schmorl's node in superior endplate of the L1 vertebral body is stable. IMPRESSION: 1. Enlarging left sided pleural effusion. 2. Large perisplenic fluid collection stable in size and contour compared to 03/17/2018. Differential diagnosis includes a large subcapsular splenic hematoma versus less likely pancreatic pseudocyst. 3. Mildly dilated loops of proximal small bowel which represent ileus versus early or partial small bowel obstruction. 4. Dictated by: Kae Del Rio MD, PhD on 04/02/2018 at 8:39 Approved by: Kae Del Rio MD, PhD on 04/02/2018 at 8:52
--- NOTE | 2018-04-02 03:52 | PC.NURSE ---
pt states he is drinking because he wants the pain gone. 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
[2018-04-02 04:04] VITALS: BP 130/89; PULSE 64; RESP 13; O2SAT 100
[2018-04-02 04:07] LABS: Add Manual Diff / Slide Review NO; Basophils Percent Auto 1.6 % (0-2); Eosinophils Percent Auto 3.4 % (2-4); Hematocrit 37.2 % (41-53); Hemoglobin 12.4 g/dL (13.5-17.5); Lymphocytes Percent Auto 25.8 % (25-40); Mean Corpuscular HGB Conc 33.3 % (30-36); Mean Corpuscular Hemoglobin 29.9 PG (26-34); Mean Corpuscular Volume 89.8 fL (80-100); Monocytes Percent Auto 7.1 % (3-14); Neutrophils Absolute Auto 3800 /uL (3000-5900); Neutrophils Percent Auto 62.1 % (50-75); Platelet Count 361 X10^3/uL (150-400); Red Blood Cell Count 4.14 X10^6/uL (4.5-5.9); Red Cell Distribution Width 18.1 % (11.6-14.8); White Blood Cell Count 6.2 X10^3/uL (4.5-11.0)
[2018-04-02 04:16] LABS: INR 1.1 (0.9-1.3); Prothrombin Time 12.3 SECONDS (10.1-12.7)
[2018-04-02 04:18] LABS: PTT Partial Thromboplastin Tim 35 SECONDS (26.4-36.2)
[2018-04-02 04:22] LABS: Alanine Aminotransferase 28 IU/L (21-72); Albumin 3.6 g/dL (3.5-5.0); Albumin Globulin Ratio 1.1 (1.0-2.8); Alkaline Phosphatase 128 U/L (38-126); Aspartate Aminotransferase 47 IU/L (17-59); BUN Creatinine Ratio 12.9 (6-22); Bilirubin Total 0.4 mg/dL (0.2-1.3); Blood Urea Nitrogen 9 mg/dL (9-20); Calcium 8.4 mg/dL (8.4-10.2); Carbon Dioxide 25 mmol/L (22-32); Chloride 99 mmol/L (98-107); Creatine Kinase 31 U/L (55-170); Estimated Glomerular Filt Rate > 60.0 mL/min (>60); Ethanol (ETOH) 210 mg/dL; Globulin 3.4 g/dL (1.7-4.1); Glucose 90 mg/dL (70-100); HEMOLYSIS < 15 (0-50); Potassium 3.8 mmol/L (3.4-5.1); Sodium 138 mmol/L (137-145)
[2018-04-02 04:52] LABS: Troponin I < 0.012 ng/mL (0.01-0.034)
[2018-04-02 04:54] VITALS: BP 132/75; PULSE 66; RESP 14; O2SAT 99
[2018-04-02 06:01] VITALS: BP 131/88; PULSE 67; RESP 11; O2SAT 99
[2018-04-02] MEDS: HYDROMORPHONE 0.5 MG INJ IV (06:25)
[2018-04-02 06:37] VITALS: BP 127/77; PULSE 63; RESP 11; O2SAT 99
[2018-04-02] MEDS: HYDROMORPHONE 1 MG INJ 0.5 MG IV (07:44)
== END 2018-04-02 07:47 | disposition short-term general hospital (02) ==
PROVIDERS: Emergency Provider Emergency Medicine
DX: D73.89 Other diseases of spleen (principal); W18.30XA Fall on same level, unspecified, initial encounter
CPT/HCPCS: 36415; 70450; 74177; 80053; 80320; 81003; 82550; 82553; 84484; 85025; 85610; 85730; 86850; 86900; 86901; 93005; 93010; 96374; 96376; 99284; 99285; J1170; Q9967

== ENCOUNTER 2018-04-07 15:52 | Emergency (ER) | payer OTHER, MEDICAID, SELFPAY ==
[2018-04-07 15:56] VITALS: BP 133/79; PULSE 74; RESP 17; TEMP 37.1; O2SAT 68; BMI 20.7
[2018-04-07 16:43] LABS: Add Manual Diff / Slide Review NO; Basophils Percent Auto 0.9 % (0-2); Hematocrit 33.8 % (41-53); Hemoglobin 11.3 g/dL (13.5-17.5); Lymphocytes Percent Auto 11.2 % (25-40); Mean Corpuscular HGB Conc 33.3 % (30-36); Mean Corpuscular Hemoglobin 30.1 PG (26-34); Mean Corpuscular Volume 90.5 fL (80-100); Monocytes Percent Auto 7.6 % (3-14); Neutrophils Absolute Auto 8800 /uL (3000-5900); Neutrophils Percent Auto 79.3 % (50-75); Platelet Count 336 X10^3/uL (150-400); Red Blood Cell Count 3.74 X10^6/uL (4.5-5.9); Red Cell Distribution Width 18.9 % (11.6-14.8); White Blood Cell Count 11.1 X10^3/uL (4.5-11.0)
--- NOTE | 2018-04-07 16:45 | ED.ABDPAIN ---
HPI - Abdominal Pain General Chief Complaint: Abdominal Pain Stated Complaint: THINKS INCISION IS INFECTED AND DRAIN IS COMING OU Time Seen by Provider: 04/07/18 16:27 Source: patient, family and old records reviewed ( Records obtained from [facility]) Limitations: no limitations History of Present Illness HPI narrative: this is a 58-year-old male who comes to the emergency department with complaint of abdominal pain. 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 Patient states that he is supposed to return for additional work and evaluation. He states that today he thought that the drainage bag was sitting in his pocket but it fell and the drain pulled on his abdomen at the suture site causing pain. He was already having some increased pain over time from the hospital. He states that Um the pain medications they have given him Percocet 2.5 mg have not been adequate he was taking Percocet 10 mg at [facility] which was more adequate for his pain control. He has been nauseated but had no vomiting. He has been having bowel movements every couple days. He has been urinating regularly. His drainage bag has not had any new color changes. The site for the drain on his abdomen has had some redness and a little bit of crusting discharge. Patient denies any fevers. MD complaint: abdominal pain Onset (ago): day(s) Pain Consistency: constant Location: LUQ Severity: severe Radiation: none Migration to: no migration Relieving factors: medication ( Helps some) Related Data Previous Rx's Medication Instructions Recorded hydrocodone-acetaminophen 1 tab PO Q4-6H PRN #14 tab 03/17/18 ondansetron [Zofran ODT] 4 mg PO Q6H PRN #14 tab 03/17/18 oxycodone-acetaminophen [Percocet] 1 tab PO Q6H PRN #10 tab 04/07/18 sulfamethoxazole-trimethoprim 1 tab PO BID #14 tab 04/07/18 [Bactrim DS] Allergies Allergy/AdvReac Type Severity Reaction Status Date / Time No Known Drug Allergies Allergy Verified 04/07/18 15:58 Review of Systems Review of Systems All systems reviewed & are unremarkable except as noted in HPI and below Constitutional Reports anorexia, Denies chills, Denies fever(s) and Denies lethargy Cardiovascular Denies chest pain, Denies irregular heart rhythm, Denies lightheadedness, Denies palpitations, Denies dyspnea, Denies dyspnea on exertion and Denies orthopnea Respiratory Denies cough, Denies dyspnea, Denies dyspnea on exertion and Denies wheezing Gastrointestinal Gastrointestinal: Reports as per HPI ( pain in left upper quadrant and some redness at site of drain), Reports abdominal pain, Denies melena, Denies constipation, Denies diarrhea, Denies nausea and Denies vomiting Genitourinary Reports difficulty urinating ( chronic difficulty with starting history) and Reports nocturia Endocrine Denies palpitations Allergic/Immunologic Denies wheezing [facility] Medical History Pancreatitis (Acute) Maxillary sinus cancer (Acute) Alcoholism (Acute) Subcapsular hemorrhage of spleen (Acute) Social History Smoking Status: Current every day smoker alcohol intake: current Exam Initial Vital Signs Initial Vital Signs: Vital Signs Temperature 98.7 F 04/07/18 15:56 Pulse Rate 74 04/07/18 15:56 Respiratory Rate 17 04/07/18 15:56 Blood Pressure 133/79 04/07/18 15:56 Pulse Oximetry 68 L 04/07/18 15:56 Const General: cooperative and in distress ( mild) Nutritional Appearance: malnourished Orientation: alert, awake and oriented x3 Chest Chest: normal inspection of the chest Resp Effort & Inspection: normal respiratory effort, able to speak in complete sentences, no respiratory distress and no use of accessory muscles Auscultation: clear to auscultation bilaterally, no rales, no rhonchi and no wheezes Cardio Rate: regular rate Rhythm: regular rhythm Heart Sounds: no click, no gallops, no murmurs and no rubs Pulses: normal peripheral pulses GI Inspection: no abdominal wall ecchymosis and non-distended Palpation: soft, No no hepatosplenomegaly, No firm, No guarding, hepatomegaly and tender ( over the left upper quadrant Um and area of splenic drain) Auscultation: normal bowel sounds Other: patient has a a drain protruding from the left upper quadrant there is some slight erythema extending several cm around the area. There is low bit of a yellowish crusting but no purulent drainage or foul drainage. Patient's drain is draining then bloody fluid with some very small dark clots. No signs of pus or purulent collection General: No bimanual renal exam normal bilaterally Course Orders Ordered: Discontinued Medications Sodium Chloride (Normal Saline 0.9%) 1,000 mls @ 150 mls/hr IV CONT SMITA Last Infusion: 04/07/18 19:27 Dose: 0 mls/hr Infusion: 04/07/18 19:17 Dose: 0 mls/hr Admin: 04/07/18 17:52 Dose: 150 mls/hr Morphine Sulfate (Morphine) 4 mg IV NOW ONE Stop: 04/07/18 16:46 Last Admin: 04/07/18 16:50 Dose: 4 mg Oxycodone/Acetaminophen (Endocet 5/325 Prepack) 1 bottle MISC SEEINSTR ONE Stop: 04/07/18 19:40 Last Admin: 04/07/18 19:43 Dose: 1 bottle Trimethoprim/Sulfamethoxazole (Bactrim Ds) 1 tab PO NOW ONE Stop: 04/07/18 19:41 Last Admin: 04/07/18 19:43 Dose: 1 tab Reevaluation(s) Reevaluation #1: Patient is feeling more comfortable. Time: 18:35 Vital Signs - 8 hr 04/07/18 15:56 04/07/18 17:00 04/07/18 17:59 Temperature 98.7 F Pulse Rate 74 54 L 58 L Respiratory Rate 17 17 Blood Pressure 133/79 Blood Pressure [Left Arm] 107/59 L 108/66 Pulse Oximetry 68 L 98 98 MDM - Abdominal Pain Lab Data Result diagrams: 04/07/18 16:35 04/07/18 16:35 Lab Results 04/07/18 04/07/18 04/07/18 Range/Units 16:35 16:35 16:35 WBC 11.1 H (4.5-11.0) X10^3/uL RBC 3.74 L (4.5-5.9) X10^6/uL Hgb 11.3 L (13.5-17.5) g/dL Hct 33.8 L (41-53) % MCV 90.5 (80-100) fL MCH 30.1 (26-34) PG MCHC 33.3 (30-36) % RDW 18.9 H (11.6-14.8) % Plt Count 336 (150-400) X10^3/uL Neut % (Auto) 79.3 H (50-75) % Lymph % (Auto) 11.2 L (25-40) % [place] % (Auto) 7.6 (3-14) % Eos % (Auto) 1.0 L (2-4) % Baso % (Auto) 0.9 (0-2) % Neut # (Auto) 8800 H (7805-5231) /uL PT 12.8 H (10.1-12.7) SECONDS INR 1.2 (0.9-1.3) APTT 29 D (26.4-36.2) SECONDS Sodium 133 L (137-145) mmol/L Potassium 5.2 H D (3.4-5.1) mmol/L Chloride 102 (98-107) mmol/L Carbon Dioxide 28 (22-32) mmol/L BUN 11 (9-20) mg/dL Creatinine 0.80 (0.66-1.25) mg/dL Estimated GFR > 60.0 (>60) mL/min BUN/Creatinine Ratio 13.8 (6-22) Glucose 103 H (70-100) mg/dL Calcium 8.2 L (8.4-10.2) mg/dL Total Bilirubin 0.6 (0.2-1.3) mg/dL AST 27 (17-59) IU/L ALT 23 (21-72) IU/L Alkaline Phosphatase 75 D (38-126) U/L Total Protein 5.9 L (6.3-8.2) g/dL Albumin 2.8 L (3.5-5.0) g/dL Globulin 3.1 (1.7-4.1) g/dL Albumin/Globulin Ratio 0.9 L (1.0-2.8) Lipase 67 (23-300) U/L Point of care testing: Urine Dip Bedside Urine Glucose Negative Bedside Urine Bilirubin - Negative Bedside Urine Ketone - Negative Urine Specific [place] 1.005 Bedside Urine Occult Blood - Negative Bedside Urine pH 6.5 Bedside Urine Protein - Negative Bedside Urine Urobilinogen - Negative Bedside Urine Nitrite - Negative Bedside Urine Leukocytes - Negative Esterase Imaging Data CT scan - abdomen: Radiologist's impression: [address] [address] [address] Scan Report Signed Patient: Wicho Hutson#: [id number] : 9Acct:[id number] Age/Sex: 58 / MDate of Service: 04/07/18 Loc: ED Accession Number: [id number] Procedure: CT abdomen pelvis w con Ordering Provider: Melba Wang D.O. PROCEDURE: CT ABDOMEN PELVIS W CON INDICATIONS: increased abdominal pain, had splenic/pancreatic drain LUQ TECHNIQUE: After the administration of intravenous contrast, 5 mm thick sections acquired from the diaphragm to the symphysis. 5 mm coronal and sagittal reformats were acquired. For radiation dose reduction, the following was used: automated exposure control, adjustment of mA and/or kV according to patient size. COMPARISON: [facility], CT, CT ABDOMEN PELVIS W CON, 04/02/2018, 4:28. FINDINGS: Image quality: Excellent. ABDOMEN: Lung bases: Moderate-sized left-sided pleural effusion is stable. Consolidation left lung base has decreased compatible with compressive atelectasis. Heart size is normal. Solid organs: Liver is normal in size and enhancement. Gallbladder is within normal limits. Biliary system is non dilated. Pancreas enhances normally. Percutaneous pigtail catheter is in place and perisplenic fluid collection in the interval since prior exam obtained 04/02/2018. Perisplenic fluid collection is decreased in size compared to 04/02/2018 measuring approximately 12.2 x 7.1 x 11.6 cm. Small air locules noted in the perisplenic fluid collection which is likely related to the percutaneous catheter versus infection with gas-forming organism. No adrenal nodules. Kidneys demonstrate normal size and enhancement, without hydronephrosis. Peritoneum and bowel: Bowel loops demonstrate normal wall thickness and caliber. Colonic diverticuli without evidence of diverticulitis. Trace free fluid noted in the pelvis. No free intraperitoneal air. Nodes and vessels: No retroperitoneal or mesenteric adenopathy by size criteria. Aorta and inferior vena cava are normal in size. Scattered atherosclerotic calcifications are noted in the abdominal and pelvic vasculature. Miscellaneous: No ventral hernias. PELVIS: Genitourinary: Bladder wall thickness is normal. Miscellaneous: No inguinal hernias or adenopathy. Bones: No suspicious bony lesions. No vertebral body compression fractures. Spine degenerative disease and facet arthropathy noted. IMPRESSION: 1. Status post placement of percutaneous pigtail catheter in perisplenic fluid collection. Perisplenic fluid collection is decreased in size compared to 04/02/2018. 2. Small air locules in perisplenic fluid collection likely related to percutaneous catheter versus infection with gas-forming organism. 3. Moderate-sized left-sided pleural effusion stable compared to 04/02/2018. Dictated by: Kae Del Rio MD, PhD on 04/07/2018 at 18:39 Approved by: Kae Del Rio MD, PhD on 04/07/2018 at 18:44 [facility] Narrative Medical decision making narrative: Patient has had some increasing abdominal pain but tells like he is not taking pain medication the same strength was when in the hospital. He has some slight area of cellulitis around the opening of his drain but otherwise does not have any signs of sepsis or severe infection. His CT shows decrease in fluid collection does show some air but he did recently have the drain placed so this is not unexpected. His lab work shows a very slight elevation i of potassium. Patient has follow-up on the 09 of April with his physicians at [facility]. Patient was placed on a short course of antibiotics, given a prescription for the same dose of pain medication he was taking prior to discharge from the hospital and asked to return if he has any worsening symptoms. Discharge Plan Departure Patient Disposition: Home Clinical Impression: Spleen hematoma, Cellulitis of drainage site, post-operative Discharge Date/Time: 04/07/18 19:52 Interventions: ED Discharge Assessment Last Done: 04/07/18 19:51 Instructions: DI for Cellulitis -- Adult Activity Restrictions/Additional Instructions: Follow-up your appointment with your physicians at [facility] in 2 days. Take medications as prescribed, these medications can make you sleepy do not drive, perform hazards activities or make any major decisions while taking them. Take antibiotics until they are completely gone. Return to the emergency department if your symptoms are worsening, if he have fevers or any other new or concerning changes. Prescriptions: New oxycodone-acetaminophen [Percocet] 10-325 mg tablet 1 tab PO Q6H PRN (Reason: pain) Qty: 10 RF: 0 sulfamethoxazole-trimethoprim [Bactrim DS] 800-160 mg tablet 1 tab PO BID Qty: 14 RF: 0 No Action hydrocodone-acetaminophen 5-325 mg tablet 1 tab PO Q4-6H PRN (Reason: pain) Qty: 14 RF: 0 ondansetron [Zofran ODT] 4 mg tablet,disintegrating 4 mg PO Q6H PRN (Reason: nausea and vomiting) Qty: 14 RF: 0
[2018-04-07 16:50] LABS: INR 1.2 (0.9-1.3); Prothrombin Time 12.8 SECONDS (10.1-12.7)
[2018-04-07] MEDS: MORPHINE 4 MG/ML INJ IV (16:50)
[2018-04-07 16:53] LABS: PTT Partial Thromboplastin Tim 29 SECONDS (26.4-36.2)
[2018-04-07 16:54] LABS: Alanine Aminotransferase 23 IU/L (21-72); Albumin 2.8 g/dL (3.5-5.0); Albumin Globulin Ratio 0.9 (1.0-2.8); Alkaline Phosphatase 75 U/L (38-126); Aspartate Aminotransferase 27 IU/L (17-59); BUN Creatinine Ratio 13.8 (6-22); Bilirubin Total 0.6 mg/dL (0.2-1.3); Blood Urea Nitrogen 11 mg/dL (9-20); Calcium 8.2 mg/dL (8.4-10.2); Carbon Dioxide 28 mmol/L (22-32); Chloride 102 mmol/L (98-107); Estimated Glomerular Filt Rate > 60.0 mL/min (>60); Globulin 3.1 g/dL (1.7-4.1); Glucose 103 mg/dL (70-100); HEMOLYSIS 47 (0-50); Lipase 67 U/L (23-300); Potassium 5.2 mmol/L (3.4-5.1); Sodium 133 mmol/L (137-145); Total Protein 5.9 g/dL (6.3-8.2)
[2018-04-07 17:00] VITALS: BP 107/59; PULSE 54; O2SAT 98
--- NOTE | 2018-04-07 17:02 | ED_ITS ---
HPI - Abdominal Pain General Chief Complaint: Abdominal Pain Stated Complaint: THINKS INCISION IS INFECTED AND DRAIN IS COMING OU Time Seen by Provider: 04/07/18 16:27 Source: patient, family and old records reviewed ( Records obtained from [facility]) Limitations: no limitations History of Present Illness HPI narrative: this is a 58-year-old male who comes to the emergency department with complaint of abdominal pain. 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 Patient states that he is supposed to return for additional work and evaluation. He states that today he thought that the drainage bag was sitting in his pocket but it fell and the drain pulled on his abdomen at the suture site causing pain. He was already having some increased pain over time from the hospital. He states that Um the pain medications they have given him Percocet 2.5 mg have not been adequate he was taking Percocet [address] [facility] which was more adequate for his pain control. He has been nauseated but had no vomiting. He has been having bowel movements every couple days. He has been urinating regularly. His drainage bag has not had any new color changes. The site for the drain on his abdomen has had some redness and a little bit of crusting discharge. Patient denies any fevers. MD complaint: abdominal pain Onset (ago): day(s) Pain Consistency: constant Location: LUQ Severity: severe Radiation: none Migration to: no migration Relieving factors: medication ( Helps some) Related Data Previous Rx's Medication Instructions Recorded hydrocodone-acetaminophen 1 tab PO Q4-6H PRN #14 tab 03/17/18 ondansetron [Zofran ODT] 4 mg PO Q6H PRN #14 tab 03/17/18 oxycodone-acetaminophen [Percocet] 1 tab PO Q6H PRN #10 tab 04/07/18 sulfamethoxazole-trimethoprim 1 tab PO BID #14 tab 04/07/18 [Bactrim DS] Allergies Allergy/AdvReac Type Severity Reaction Status Date / Time No Known Drug Allergies Allergy Verified 04/07/18 15:58 Review of Systems Review of Systems All systems reviewed & are unremarkable except as noted in HPI and below Constitutional Reports anorexia, Denies chills, Denies fever(s) and Denies lethargy Cardiovascular Denies chest pain, Denies irregular heart rhythm, Denies lightheadedness, Denies palpitations, Denies dyspnea, Denies dyspnea on exertion and Denies orthopnea Respiratory Denies cough, Denies dyspnea, Denies dyspnea on exertion and Denies wheezing Gastrointestinal Gastrointestinal: Reports as per HPI ( pain in left upper quadrant and some redness at site of drain), Reports abdominal pain, Denies melena, Denies constipation, Denies diarrhea, Denies nausea and Denies vomiting Genitourinary Reports difficulty urinating ( chronic difficulty with starting history) and Reports nocturia Endocrine Denies palpitations Allergic/Immunologic Denies wheezing [facility] Medical History Pancreatitis (Acute) Maxillary sinus cancer (Acute) Alcoholism (Acute) Subcapsular hemorrhage of spleen (Acute) Social History Smoking Status: Current every day smoker alcohol intake: current Exam Initial Vital Signs Initial Vital Signs: Vital Signs Temperature 98.7 F 04/07/18 15:56 Pulse Rate 74 04/07/18 15:56 Respiratory Rate 17 04/07/18 15:56 Blood Pressure 133/79 04/07/18 15:56 Pulse Oximetry 68 L 04/07/18 15:56 Const General: cooperative and in distress ( mild) Nutritional Appearance: malnourished Orientation: alert, awake and oriented x3 Chest Chest: normal inspection of the chest Resp Effort & Inspection: normal respiratory effort, able to speak in complete sentences, no respiratory distress and no use of accessory muscles Auscultation: clear to auscultation bilaterally, no rales, no rhonchi and no wheezes Cardio Rate: regular rate Rhythm: regular rhythm Heart Sounds: no click, no gallops, no murmurs and no rubs Pulses: normal peripheral pulses GI Inspection: no abdominal wall ecchymosis and non-distended Palpation: soft, No no hepatosplenomegaly, No firm, No guarding, hepatomegaly and tender ( over the left upper quadrant Um and area of splenic drain) Auscultation: normal bowel sounds Other: patient has a a drain protruding from the left upper quadrant there is some slight erythema extending several cm around the area. There is low bit of a yellowish crusting but no purulent drainage or foul drainage. Patient's drain is draining then bloody fluid with some very small dark clots. No signs of pus or purulent collection General: No bimanual renal exam normal bilaterally Course Orders Ordered: Discontinued Medications Sodium Chloride (Normal Saline 0.9%) 1,000 mls @ 150 mls/hr IV CONT SMITA Last Infusion: 04/07/18 19:27 Dose: 0 mls/hr Infusion: 04/07/18 19:17 Dose: 0 mls/hr Admin: 04/07/18 17:52 Dose: 150 mls/hr Morphine Sulfate (Morphine) 4 mg IV NOW ONE Stop: 04/07/18 16:46 Last Admin: 04/07/18 16:50 Dose: 4 mg Oxycodone/Acetaminophen (Endocet 5/325 Prepack) 1 bottle MISC SEEINSTR ONE Stop: 04/07/18 19:40 Last Admin: 04/07/18 19:43 Dose: 1 bottle Trimethoprim/Sulfamethoxazole (Bactrim Ds) 1 tab PO NOW ONE Stop: 04/07/18 19:41 Last Admin: 04/07/18 19:43 Dose: 1 tab Reevaluation(s) Reevaluation #1: Patient is feeling more comfortable. Time: 18:35 Vital Signs - 8 hr 04/07/18 15:56 04/07/18 17:00 04/07/18 17:59 Temperature 98.7 F Pulse Rate 74 54 L 58 L Respiratory Rate 17 17 Blood Pressure 133/79 Blood Pressure [Left Arm] 107/59 L 108/66 Pulse Oximetry 68 L 98 98 MDM - Abdominal Pain Lab Data Result diagrams: 04/07/18 16:35 04/07/18 16:35 Lab Results 04/07/18 04/07/18 04/07/18 Range/Units 16:35 16:35 16:35 WBC 11.1 H (4.5-11.0) X10^3/uL RBC 3.74 L (4.5-5.9) X10^6/uL Hgb 11.3 L (13.5-17.5) g/dL Hct 33.8 L (41-53) % MCV 90.5 (80-100) fL MCH 30.1 (26-34) PG MCHC 33.3 (30-36) % RDW 18.9 H (11.6-14.8) % Plt Count 336 (150-400) X10^3/uL Neut % (Auto) 79.3 H (50-75) % Lymph % (Auto) 11.2 L (25-40) % [place] % (Auto) 7.6 (3-14) % Eos % (Auto) 1.0 L (2-4) % Baso % (Auto) 0.9 (0-2) % Neut # (Auto) 8800 H (0458-3025) /uL PT 12.8 H (10.1-12.7) SECONDS INR 1.2 (0.9-1.3) APTT 29 D (26.4-36.2) SECONDS Sodium 133 L (137-145) mmol/L Potassium 5.2 H D (3.4-5.1) mmol/L Chloride 102 (98-107) mmol/L Carbon Dioxide 28 (22-32) mmol/L BUN 11 (9-20) mg/dL Creatinine 0.80 (0.66-1.25) mg/dL Estimated GFR > 60.0 (>60) mL/min BUN/Creatinine Ratio 13.8 (6-22) Glucose 103 H (70-100) mg/dL Calcium 8.2 L (8.4-10.2) mg/dL Total Bilirubin 0.6 (0.2-1.3) mg/dL AST 27 (17-59) IU/L ALT 23 (21-72) IU/L Alkaline Phosphatase 75 D (38-126) U/L Total Protein 5.9 L (6.3-8.2) g/dL Albumin 2.8 L (3.5-5.0) g/dL Globulin 3.1 (1.7-4.1) g/dL Albumin/Globulin Ratio 0.9 L (1.0-2.8) Lipase 67 (23-300) U/L Point of care testing: Urine Dip Bedside Urine Glucose Negative Bedside Urine Bilirubin - Negative Bedside Urine Ketone - Negative Urine Specific [facility] 1.005 Bedside Urine Occult Blood - Negative Bedside Urine pH 6.5 Bedside Urine Protein - Negative Bedside Urine Urobilinogen - Negative Bedside Urine Nitrite - Negative Bedside Urine Leukocytes - Negative Esterase Imaging Data CT scan - abdomen: Radiologist's impression: [address] [address] [address] Scan Report Signed Patient: Wicho Hutson#: [id number] : 9Acct:[id number] Age/Sex: 58 / MDate of Service: 04/07/18 Loc: ED Accession Number: [id number] Procedure: CT abdomen pelvis w con Ordering Provider: Melba Wang D.O. PROCEDURE: CT ABDOMEN PELVIS W CON INDICATIONS: increased abdominal pain, had splenic/pancreatic drain LUQ TECHNIQUE: After the administration of intravenous contrast, 5 mm thick sections acquired from the diaphragm to the symphysis. 5 mm coronal and sagittal reformats were acquired. For radiation dose reduction, the following was used: automated exposure control, adjustment of mA and/or kV according to patient size. COMPARISON: [facility], CT, CT ABDOMEN PELVIS W CON, 04/02/2018, 4:28. FINDINGS: Image quality: Excellent. ABDOMEN: Lung bases: Moderate-sized left-sided pleural effusion is stable. Consolidation left lung base has decreased compatible with compressive atelectasis. Heart size is normal. Solid organs: Liver is normal in size and enhancement. Gallbladder is within normal limits. Biliary system is non dilated. Pancreas enhances normally. Percutaneous pigtail catheter is in place and perisplenic fluid collection in the interval since prior exam obtained 04/02/2018. Perisplenic fluid collection is decreased in size compared to 04/02/2018 measuring approximately 12.2 x 7.1 x 11.6 cm. Small air locules noted in the perisplenic fluid collection which is likely related to the percutaneous catheter versus infection with gas-forming organism. No adrenal nodules. Kidneys demonstrate normal size and enhancement, without hydronephrosis. Peritoneum and bowel: Bowel loops demonstrate normal wall thickness and caliber. Colonic diverticuli without evidence of diverticulitis. Trace free fluid noted in the pelvis. No free intraperitoneal air. Nodes and vessels: No retroperitoneal or mesenteric adenopathy by size criteria. Aorta and inferior vena cava are normal in size. Scattered atherosclerotic calcifications are noted in the abdominal and pelvic vasculature. Miscellaneous: No ventral hernias. PELVIS: Genitourinary: Bladder wall thickness is normal. Miscellaneous: No inguinal hernias or adenopathy. Bones: No suspicious bony lesions. No vertebral body compression fractures. Spine degenerative disease and facet arthropathy noted. IMPRESSION: 1. Status post placement of percutaneous pigtail catheter in perisplenic fluid collection. Perisplenic fluid collection is decreased in size compared to 2017. 2. Small air locules in perisplenic fluid collection likely related to percutaneous catheter versus infection with gas-forming organism. 3. Moderate-sized left-sided pleural effusion stable compared to 04/02/2018. Dictated by: Kae Del Rio MD, PhD on 04/07/2018 at 18:39 Approved by: Kae Del Rio MD, PhD on 04/07/2018 at 18:44 [facility] Narrative Medical decision making narrative: Patient has had some increasing abdominal pain but tells like he is not taking pain medication the same strength was when in the hospital. He has some slight area of cellulitis around the opening of his drain but otherwise does not have any signs of sepsis or severe infection. His CT shows decrease in fluid collection does show some air but he did recently have the drain placed so this is not unexpected. His lab work shows a very slight elevation i of potassium. Patient has follow-up on the 09 of April with his physicians at [facility]. Patient was placed on a short course of antibiotics, given a prescription for the same dose of pain medication he was taking prior to discharge from the hospital and asked to return if he has any worsening symptoms. Discharge Plan Departure Patient Disposition: Home Clinical Impression: Spleen hematoma, Cellulitis of drainage site, post-operative Discharge Date/Time: 04/07/18 19:52 Interventions: ED Discharge Assessment Last Done: 04/07/18 19:51 Instructions: DI for Cellulitis -- Adult Activity Restrictions/Additional Instructions: Follow-up your appointment with your physicians at [facility] in 2 days. Take medications as prescribed, these medications can make you sleepy do not drive, perform hazards activities or make any major decisions while taking them. Take antibiotics until they are completely gone. Return to the emergency department if your symptoms are worsening, if he have fevers or any other new or concerning changes. Prescriptions: New oxycodone-acetaminophen [Percocet] 10-325 mg tablet 1 tab PO Q6H PRN (Reason: pain) Qty: 10 RF: 0 sulfamethoxazole-trimethoprim [Bactrim DS] 800-160 mg tablet 1 tab PO BID Qty: 14 RF: 0 No Action hydrocodone-acetaminophen 5-325 mg tablet 1 tab PO Q4-6H PRN (Reason: pain) Qty: 14 RF: 0 ondansetron [Zofran ODT] 4 mg tablet,disintegrating 4 mg PO Q6H PRN (Reason: nausea and vomiting) Qty: 14 RF: 0
[2018-04-07] MEDS: SODIUM CHLORIDE 0.9% 1,000 ML 150 ML IV (17:52)
[2018-04-07 17:59] VITALS: BP 108/66; PULSE 58; RESP 17; O2SAT 98
[2018-04-07 19:00] VITALS: BP 117/72; PULSE 69; RESP 16; O2SAT 98
[2018-04-07] MEDS: OXYCODONE/APAP 5/325 PREPACK 1 BOTTLE MISC (19:43)
[2018-04-07] MEDS: SULFA/TRIMETH 800/160 (DS) TABLET 1 TAB PO (19:43)
== END 2018-04-07 19:52 | disposition home or self-care (01) ==
PROVIDERS: Emergency Provider Emergency Medicine
DX: S36.029A Unspecified contusion of spleen, initial encounter (principal); T81.4XXA Infection following a procedure, initial encounter
CPT/HCPCS: 36591; 74177; 80053; 81003; 83690; 85025; 85610; 85730; 96361; 96374; 99283; 99285; J2270; Q9967

== ENCOUNTER 2018-04-12 17:57 | Emergency (ER) | payer OTHER, MEDICAID, SELFPAY ==
[2018-04-12 18:10] VITALS: BP 139/80; PULSE 75; RESP 18; TEMP 36.6; O2SAT 98
--- NOTE | 2018-04-12 18:26 | ED_ITS ---
HPI - Abdominal Pain General Chief Complaint: Abdominal Pain Stated Complaint: Possible infection lower LT stomach Time Seen by Provider: 04/12/18 18:18 Source: patient Mode of arrival: ambulatory Limitations: no limitations History of Present Illness HPI narrative: The patient originally presented here on 03/17/2018 with epigastric abdominal pain. He has history of alcohol abuse and pancreatitis. CT at that time revealed a large fluid collection around the spleen with compression of the spleen. The fluid likely represented a splenic hemorrhage. Clinical notes later indicate a pancreatic pseudocyst. The patient was transferred to [facility], a drain was placed. He currently has a left upper abdominal drain with a stopcock and drainage bag attached. He returned 03/25/2018, with acute alcohol intoxication and a mechanical fall. His abdomen was re-evaluated. He still has a fluid collection around the spleen at that time. There is no evidence of acute bleeding. He returned again on 04/07/2018 with concerns of erythema at the surgical site. A CT revealed decreased volume of the perisplenic fluid. He was discharged on . The clinical note at that time indicated he would follow up at [place] 04/09/2018. Today he tells me he drained the back. Since then he has had little output into the bag. It is noted that the stopcock is open to the wrong position, creating an external drain. He complains of ongoing erythema at the surgical site. He complains of left lower quadrant abdominal pain. He denies fever or chills. He has no urinary hesitancy or dysuria. Related Data Previous Rx's Medication Instructions Recorded hydrocodone-acetaminophen 1 tab PO Q4-6H PRN #14 tab 03/17/18 ondansetron [Zofran ODT] 4 mg PO Q6H PRN #14 tab 03/17/18 oxycodone-acetaminophen [Percocet] 1 tab PO Q6H PRN #10 tab 04/07/18 sulfamethoxazole-trimethoprim 1 tab PO BID #14 tab 04/07/18 [Bactrim DS] oxycodone-acetaminophen 1 tab PO Q4-6H PRN #15 tab 04/12/18 sulfamethoxazole-trimethoprim 1 tab PO BID 7 Days #14 tab 04/12/18 [Bactrim DS] Allergies Allergy/AdvReac Type Severity Reaction Status Date / Time No Known Drug Allergies Allergy Verified 04/07/18 15:58 Review of Systems Review of Systems All systems reviewed & are unremarkable except as noted in HPI and below Constitutional Denies chills, Denies fever(s), Denies lethargy and Denies weakness ENT Ears, Nose, Mouth, and Throat: Denies change in voice, Denies neck pain and Denies sore throat Cardiovascular Denies chest pain, Denies irregular heart rhythm, Denies lightheadedness, Denies palpitations, Denies dyspnea, Denies dyspnea on exertion and Denies orthopnea Respiratory Denies cough, Denies dyspnea, Denies dyspnea on exertion and Denies wheezing Gastrointestinal Gastrointestinal: Reports abdominal pain, Denies melena, Denies bloating and Denies constipation Genitourinary Denies hematuria, Denies flank pain, Denies urinary incontinence and Denies urinary urgency Musculoskeletal Denies back pain, Denies neck pain and Denies numbness Integumentary/Breasts Denies erythema, Denies rash and Reports wounds Neurologic Denies confusion, Denies numbness and Denies weakness Psychiatric Denies anxiety, Denies confusion and Denies depression Endocrine Denies palpitations Allergic/Immunologic Denies wheezing [facility] Medical History Pancreatitis (Acute) Maxillary sinus cancer (Acute) Alcoholism (Acute) Subcapsular hemorrhage of spleen (Acute) Social History Smoking Status: Current every day smoker alcohol intake: current Exam Initial Vital Signs Initial Vital Signs: Vital Signs Temperature 97.9 F 04/12/18 18:10 Pulse Rate 75 04/12/18 18:10 Respiratory Rate 18 04/12/18 18:10 Blood Pressure 139/80 04/12/18 18:10 Pulse Oximetry 98 04/12/18 18:10 Const General: cooperative and well developed Nutritional Appearance: well nourished Orientation: alert, awake, oriented x3 and not confused [facility] Head: normocephalic and atraumatic Mouth: oral mucosae normal and moist mucous membranes Throat: posterior oropharynx normal Eyes Conjunctivae: conjunctivae normal Sclera: sclerae normal Neck Neck: No JVD Chest Chest: normal inspection of the chest Resp Effort & Inspection: normal respiratory effort, able to speak in complete sentences, no respiratory distress and no use of accessory muscles Auscultation: clear to auscultation bilaterally, no rales, no rhonchi and no wheezes Cardio Rate: regular rate Rhythm: regular rhythm Heart Sounds: no click, no gallops, no murmurs and no rubs Pulses: normal peripheral pulses GI Inspection: non-distended and other (There is a drain in the left upper abdomen. There is yellow serous fluid in the drain line, the bag is currently empty. He has slight erythema around the drain site, I could not express purulence from the site.) Palpation: no hepatosplenomegaly, No guarding and No pulsatile mass Auscultation: normal bowel sounds Back/Spine/Pelvis Back: No CVA tenderness Skin General: no rashes or lesions noted (Other than the erythema at the drain site.) Neuro General: alert, awake, oriented x3 and no focal motor deficits Extrem General: full ROM and no clubbing, cyanosis or edema Course Orders Ordered: ED Orders 04/12/18 18:41 US abdomen limited Stat 04/12/18 19:08 Complete Blood Count AUTO DIFF Stat Comprehensive Metabolic Panel Stat Ethanol (ETOH) Stat Lipase Stat Discontinued Medications Sodium Chloride (Normal Saline 0.9%) 1,000 mls @ 1,000 mls/hr IV BOLUS ONE Stop: 04/12/18 19:42 Last Infusion: 04/12/18 20:48 Dose: 0 mls/hr Admin: 04/12/18 19:22 Dose: 1,000 mls/hr Morphine Sulfate (Morphine) 4 mg IV NOW ONE Stop: 04/12/18 18:41 Last Admin: 04/12/18 19:21 Dose: 4 mg Oxycodone/Acetaminophen (Endocet 5/325 Prepack) 1 bottle MISC SEEINSTR ONE Stop: 04/12/18 20:50 Last Admin: 04/12/18 20:55 Dose: 1 bottle Vital Signs - 8 hr 04/12/18 18:10 04/12/18 20:26 04/12/18 20:58 Temperature 97.9 F Pulse Rate 75 52 L 48 L Respiratory Rate 18 17 18 Blood Pressure 139/80 142/78 H Blood Pressure [Right Arm] 154/76 H Pulse Oximetry 98 100 100 MDM - Abdominal Pain Lab Data Result diagrams: 04/12/18 19:08 04/12/18 19:08 Lab Results 04/12/18 04/12/18 04/12/18 Range/Units 19:08 19:08 19:08 WBC 6.4 (4.5-11.0) X10^3/uL RBC 3.79 L (4.5-5.9) X10^6/uL Hgb 11.5 L (13.5-17.5) g/dL Hct 34.1 L (41-53) % MCV 90.1 (80-100) fL MCH 30.2 (26-34) PG MCHC 33.6 (30-36) % RDW 18.9 H (11.6-14.8) % Plt Count 440 H (150-400) X10^3/uL Neut % (Auto) 69.2 (50-75) % Lymph % (Auto) 18.5 L (25-40) % [place] % (Auto) 9.4 (3-14) % Eos % (Auto) 1.7 L (2-4) % Baso % (Auto) 1.2 (0-2) % Neut # (Auto) 4400 (9486-0910) /uL Sodium 141 (137-145) mmol/L Potassium 4.6 (3.4-5.1) mmol/L Chloride 104 (98-107) mmol/L Carbon Dioxide 27 (22-32) mmol/L BUN 8 L (9-20) mg/dL Creatinine 1.10 (0.66-1.25) mg/dL Estimated GFR > 60.0 (>60) mL/min BUN/Creatinine Ratio 7.3 (6-22) Glucose 78 (70-100) mg/dL Calcium 8.5 (8.4-10.2) mg/dL Total Bilirubin 0.5 (0.2-1.3) mg/dL AST 37 (17-59) IU/L ALT 10 L (21-72) IU/L Alkaline Phosphatase 81 (38-126) U/L Total Protein 6.5 (6.3-8.2) g/dL Albumin 3.1 L (3.5-5.0) g/dL Globulin 3.4 (1.7-4.1) g/dL Albumin/Globulin Ratio 0.9 L (1.0-2.8) Lipase 35 (23-300) U/L Ethyl Alcohol < 10 mg/dL Imaging Data US - abdomen: Radiologist's impression: INDICATIONS: Abdominal pain pain. Splenic drain in place, evaluate splenic size and check for free fluid. TECHNIQUE: Real-time focused scanning was performed of the abdomen, with image documentation. COMPARISON: [facility], CT, CT ABDOMEN PELVIS W CON, 04/07/2018, 17:27. FINDINGS: No peritoneal free fluid. Splenic size is normal with 176 cc splenic volume. Surrounding the spleen is a prominent degree of fluid, as was previously the case during 04/07/[address] scanning, encapsulated. IMPRESSION: Splenic size and echotexture is normal. Perisplenic fluid is encapsulated by CT criteria from CT scanning 04/07/18. Thin septations within this fluid are present. Free peritoneal fluid is not seen. Dictated by: Sree Landa M.D. on 04/12/2018 at 19:37 Approved by: Sree Landa M.D. on 04/12/2018 at 19:41 MDM Narrative Medical decision making narrative: The patient has inflammation around the tube site. He is having ongoing abdominal pain. He continues to have a large fluid collection around the spleen, likely representing a hematoma. Between the drainage tube and the hematoma he has a couple potential significant areas of pain. He is showing no evidence of significant infection. Ultrasound does not show any leakage from the hematoma site, there is no free peritoneal fluid. He missed a surgical follow-up appointment last week. The appointment has been rescheduled. The date cannot be clearly identified at this time. I will continue him on Septra DS. I will refill his oxycodone. I have emphasized the need to follow up with the surgeons at [facility]. Discharge Plan Departure Patient Disposition: Home Clinical Impression: Spleen hematoma, Surgical site infection Discharge Date/Time: 04/12/18 21:00 Interventions: ED Discharge Assessment Last Done: 04/12/18 20:58 Activity Restrictions/Additional Instructions: Oxycodone 1 every 4 hr as needed for pain. Septra DS 2 times daily as prescribed. Drink plenty of water, stay well hydrated. Follow up with [facility] as scheduled, return here significant increase in pain, or if you developed fever. Prescriptions: New sulfamethoxazole-trimethoprim [Bactrim DS] 800-160 mg tablet 1 tab PO BID 7 Days Qty: 14 RF: 0 oxycodone-acetaminophen 10-325 mg tablet 1 tab PO Q4-6H PRN (Reason: pain) Qty: 15 RF: 0 No Action hydrocodone-acetaminophen 5-325 mg tablet 1 tab PO Q4-6H PRN (Reason: pain) Qty: 14 RF: 0 ondansetron [Zofran ODT] 4 mg tablet,disintegrating 4 mg PO Q6H PRN (Reason: nausea and vomiting) Qty: 14 RF: 0 oxycodone-acetaminophen [Percocet] 10-325 mg tablet 1 tab PO Q6H PRN (Reason: pain) Qty: 10 RF: 0 sulfamethoxazole-trimethoprim [Bactrim DS] 800-160 mg tablet 1 tab PO BID Qty: 14 RF: 0
--- NOTE | 2018-04-12 18:41 | DI.US.S_ITS ---
PROCEDURE: US ABDOMEN LIMITED INDICATIONS: Abdominal pain pain. Splenic drain in place, evaluate splenic size and check for free fluid. TECHNIQUE: Real-time focused scanning was performed of the abdomen, with image documentation. COMPARISON: [facility], CT, CT ABDOMEN PELVIS W CON, 04/07/2018, 17:27. FINDINGS: No peritoneal free fluid. Splenic size is normal with 176 cc splenic volume. Surrounding the spleen is a prominent degree of fluid, as was previously the case during 04/07/[address] contrast-[address] CT scanning, encapsulated. IMPRESSION: Splenic size and echotexture is normal. Perisplenic fluid is encapsulated by CT criteria from CT scanning 04/07/18. Thin septations within this fluid are present. Free peritoneal fluid is not seen. Dictated by: Sree Landa M.D. on 04/12/2018 at 19:37 Approved by: Sree Landa M.D. on 04/12/2018 at 19:41
[2018-04-12] MEDS: MORPHINE 4 MG/ML INJ IV (19:21)
[2018-04-12] MEDS: SODIUM CHLORIDE 0.9% 1,000 ML 1000 ML IV (19:22)
[2018-04-12 19:34] LABS: Add Manual Diff / Slide Review NO; Basophils Percent Auto 1.2 % (0-2); Eosinophils Percent Auto 1.7 % (2-4); Hematocrit 34.1 % (41-53); Hemoglobin 11.5 g/dL (13.5-17.5); Lymphocytes Percent Auto 18.5 % (25-40); Mean Corpuscular HGB Conc 33.6 % (30-36); Mean Corpuscular Hemoglobin 30.2 PG (26-34); Mean Corpuscular Volume 90.1 fL (80-100); Monocytes Percent Auto 9.4 % (3-14); Neutrophils Absolute Auto 4400 /uL (3000-5900); Neutrophils Percent Auto 69.2 % (50-75); Platelet Count 440 X10^3/uL (150-400); Red Blood Cell Count 3.79 X10^6/uL (4.5-5.9); Red Cell Distribution Width 18.9 % (11.6-14.8); White Blood Cell Count 6.4 X10^3/uL (4.5-11.0)
[2018-04-12 19:47] LABS: Alanine Aminotransferase 10 IU/L (21-72); Albumin 3.1 g/dL (3.5-5.0); Albumin Globulin Ratio 0.9 (1.0-2.8); Alkaline Phosphatase 81 U/L (38-126); Aspartate Aminotransferase 37 IU/L (17-59); BUN Creatinine Ratio 7.3 (6-22); Bilirubin Total 0.5 mg/dL (0.2-1.3); Blood Urea Nitrogen 8 mg/dL (9-20); Calcium 8.5 mg/dL (8.4-10.2); Carbon Dioxide 27 mmol/L (22-32); Chloride 104 mmol/L (98-107); Estimated Glomerular Filt Rate > 60.0 mL/min (>60); Globulin 3.4 g/dL (1.7-4.1); Glucose 78 mg/dL (70-100); HEMOLYSIS 88 (0-50); Lipase 35 U/L (23-300); Potassium 4.6 mmol/L (3.4-5.1); Sodium 141 mmol/L (137-145); Total Protein 6.5 g/dL (6.3-8.2)
[2018-04-12 20:01] LABS: Ethanol (ETOH) < 10 mg/dL
[2018-04-12 20:26] VITALS: BP 154/76; PULSE 52; RESP 17; O2SAT 100
[2018-04-12] MEDS: OXYCODONE/APAP 5/325 PREPACK 1 BOTTLE MISC (20:55)
[2018-04-12 20:58] VITALS: BP 142/78; PULSE 48; RESP 18; O2SAT 100
== END 2018-04-12 21:00 | disposition home or self-care (01) ==
PROVIDERS: Emergency Provider Emergency Medicine
DX: T81.4XXA Infection following a procedure, initial encounter (principal); S36.029A Unspecified contusion of spleen, initial encounter
CPT/HCPCS: 36415; 36591; 76705; 80053; 80320; 83690; 85025; 96361; 96374; 99283; 99284; J2270

== ENCOUNTER 2018-05-08 15:29 | Emergency (ER) | payer OTHER, MEDICAID, SELFPAY ==
[2018-05-08 15:33] VITALS: BP 112/73; PULSE 70; RESP 15; TEMP 36.4; O2SAT 97
--- NOTE | 2018-05-08 17:27 | PC.NURSE ---
spoke to [facility] at 1700 to see if they could find out what to do with the drain. 1725 called back and gave me surgical history, will send a page out to surgeon for consult with EDMD. ED physician updated.
[2018-05-08 18:25] VITALS: BP 118/52; PULSE 72; RESP 17
--- NOTE | 2018-05-16 20:03 | ED.WOUNDLAC ---
HPI - Wound/Laceration General Chief Complaint: Wound/Laceration Stated Complaint: THINKS DRAIN FROM SPLEEN MAY BE PLUGGED Time Seen by Provider: 05/08/18 16:22 Source: patient and other (overnight caregiver) Mode of arrival: ambulatory Limitations: no limitations History of Present Illness HPI narrative: Patient has presented to the emergency department today because he would like to have his PUMA drain removed. His PUMA drain was placed a few weeks ago at [facility], after patient took a fall and ruptured his spleen. Patient and caregiver state that all along, the drain has been putting out brownish fluid, but the amount has gotten less and less. Today, the drain has put out about 5 cc of fluid. Patient denies fevers or abdominal pain. He denies any new injury to the area. He states he has had a mild amount of leakage around the tube site here. He states he has been tried changing the bandage around the site about once a week. He has not followed up with his surgeon or his primary care physician on [facility]. Patient denies other complaints. He states he is tired of having the drain and would like to have it taken out. Related Data Home Medications Medication Instructions Recorded Confirmed famotidine 20 mg PO BID 05/08/18 05/08/18 gabapentin 2 cap PO TID 05/08/18 05/08/18 ibuprofen 1 tab PO TID 05/08/18 05/08/18 lidocaine HCl [Lidocaine Viscous] 05/08/18 [id number] [Creon] 1 cap PO BID 05/08/18 05/08/18 Previous Rx's Medication Instructions Recorded hydrocodone-acetaminophen 1 tab PO Q4-6H PRN #14 tab 03/17/18 ondansetron [Zofran ODT] 4 mg PO Q6H PRN #14 tab 03/17/18 oxycodone-acetaminophen 1 tab PO Q4-6H PRN #15 tab 04/12/18 Allergies Allergy/AdvReac Type Severity Reaction Status Date / Time No Known Drug Allergies Allergy Verified 04/07/18 15:58 Review of Systems Review of Systems All systems reviewed & are unremarkable except as noted in HPI and below Constitutional Denies chills, Denies fever(s), Denies lethargy and Denies weakness Eyes Denies change in vision, Denies eye discharge, Denies irritation and Denies loss of vision ENT Ears, Nose, Mouth, and Throat: Denies change in voice, Denies neck pain and Denies sore throat Cardiovascular Denies chest pain, Denies irregular heart rhythm, Denies lightheadedness, Denies palpitations, Denies dyspnea, Denies dyspnea on exertion and Denies orthopnea Respiratory Denies cough, Denies dyspnea, Denies dyspnea on exertion and Denies wheezing Gastrointestinal Gastrointestinal: Denies abdominal pain, Denies change in bowel habits, Denies diarrhea, Denies nausea and Denies vomiting Genitourinary Denies hematuria, Denies flank pain, Denies urinary incontinence and Denies urinary urgency Musculoskeletal Denies neck pain Integumentary/Breasts Denies pruritus, Denies erythema, Denies rash and Denies wounds Neurologic Denies confusion, Denies loss of vision and Denies weakness Psychiatric Denies anxiety, Denies confusion, Denies depression, Denies homicidal ideation and Denies suicidal ideation Endocrine Denies palpitations Hematologic/Lymphatic Denies easy bruising Allergic/Immunologic Denies wheezing [facility] Medical History Subcapsular hemorrhage of spleen (Acute) Pancreatitis (Acute) Maxillary sinus cancer (Acute) Alcoholism (Acute) Social History Smoking Status: Current every day smoker alcohol intake: current Comment: Surgical history: PUMA drain placement left flank. Exam Initial Vital Signs Initial Vital Signs: Vital Signs Temperature 97.6 F 05/08/18 15:33 Pulse Rate 70 05/08/18 15:33 Respiratory Rate 15 05/08/18 15:33 Blood Pressure 112/73 05/08/18 15:33 Pulse Oximetry 97 05/08/18 15:33 Const General: cooperative and well developed Orientation: alert, awake, oriented x3 and not confused Other: Patient is disheveled. HENWV Head: normocephalic and atraumatic Ears: external ears normal and TM's normal bilaterally Nose: external nose normal and No nasal discharge Face and sinus: sinuses nontender, face symmetric, no sinus tenderness and No dry mucous membranes Mouth: oral mucosae normal and moist mucous membranes Teeth and gingiva: dentition normal Throat: tonsils normal and uvula midline Eyes General: appearance normal, both eyes and all related structures Eyelids: eyelids normal Conjunctivae: conjunctivae normal Sclera: sclerae normal Pupils: PERRL EOM: EOM intact bilaterally Neck Neck: normal visual inspection, trachea midline, No lymphadenopathy, No midline deformity and No JVD Lymphatic: No lymphedema Chest Chest: normal inspection of the chest Resp Effort & Inspection: normal respiratory effort, able to speak in complete sentences, no respiratory distress and no use of accessory muscles Auscultation: clear to auscultation bilaterally, no rales, no rhonchi and no wheezes Cardio Rate: regular rate Rhythm: regular rhythm Heart Sounds: no click, no gallops, no murmurs and no rubs Pulses: normal peripheral pulses GI Inspection: non-distended Palpation: soft, no hepatosplenomegaly, No guarding, No pulsatile mass and No tender Other: Patient has a drain in place in his left lateral abdomen. Mild amount of drainage is noted on the bandage, though a very old-appearing and secretions soaked Vaseline gauze is noted to be still wrapped around the drain at the site of exit from the patient's flank. No erythema is noted around the drain site. No drainage is expressible with palpation around the area and the wound in a dependent position. About 10 cc of brownish fluid is noted in the patient's drain bulb. Back/Spine/Pelvis Back: No CVA tenderness Cervical Spine: cervical ROM normal and No pain with cervical ROM Thoracic/Lumbar Spine: thoracic and lumbar spine normal to inspection Skin General: no rashes or lesions noted, No jaundice and No petechiae Neuro General: alert, oriented x3, gait normal and no focal motor deficits Speech: speech normal Extrem General: full ROM, no clubbing, cyanosis or edema, no pedal edema and no calf tenderness Psych Appearance: well kempt Mental Status: mental status grossly normal Attitude: cooperative Thought Content: normal and suicidality Judgment: judgment good Course Course Narrative: Patient was well appearing and once cleaned, his wound site actually looked quite good. I did review his discharge papers, and it was unclear with whom the patient was to follow up at [facility]. He had been instructed to follow up with his primary care physician, but that had not happened. The patient had been instructed to follow up back at [facility] in 2 weeks for likely drain removal, and a general number had been given. We did call [facility] to try to get in touch with the surgery team who had taken care of the patient. Surgeon was paged, but ultimately, after 2 hr, had still not called back. Patient stated he wanted to go home. I did feel this was reasonable, and I discussed with him that most likely the drain indeed is ready to come out, but I do not want to remove the drain without consulting with his surgeon first. I have discussed with the patient and caregiver that it is very important to follow up as directed, as the drain being left in place for too long can become a vector for infection. I have also instructed them that they need to be treated changing the bandage and cleaning the site at least every other day if not daily. We have discussed the usual indications for return, including fever, abdominal pain and redness at the site. MDM - Wound/Laceration Medical Records Attestation: I reviewed the patient's medical records. Discharge Plan Departure Patient Disposition: Home Clinical Impression: Encounter for post surgical wound check Discharge Date/Time: 05/08/18 18:25 Interventions: ED Discharge Assessment Last Done: 05/08/18 18:25 Instructions: DI with Wound Drains Activity Restrictions/Additional Instructions: We have not been able to reach your surgeon at [facility]. Given the complicated nature of your history, it is best not to remove the tube in the emergency department without the surgeons approval. As such, we will have you call the number provided on your papers from [facility] tomorrow, and you can set up the follow-up appointment to have the drain removed, as it does sound like the drainage has decreased enough that you can probably have this done. There is no evidence of infection around the tube site, but you do need to be changing the dressing every day to prevent infection from happening. Prescriptions: No Action ibuprofen 800 mg tablet 1 tab PO TID RF: 0 famotidine 20 mg tablet 20 mg PO BID RF: 0 lidocaine HCl [Lidocaine Viscous] 2 % solution RF: 0 gabapentin 100 mg capsule 2 cap PO TID RF: 0 [id number]-ruiewxa [Creon] 12,000-38,000 -60,000 unit capsule,delayed release(DR/EC) 1 cap PO BID RF: 0 hydrocodone-acetaminophen 5-325 mg tablet 1 tab PO Q4-6H PRN (Reason: pain) Qty: 14 RF: 0 ondansetron [Zofran ODT] 4 mg tablet,disintegrating 4 mg PO Q6H PRN (Reason: nausea and vomiting) Qty: 14 RF: 0 oxycodone-acetaminophen 10-325 mg tablet 1 tab PO Q4-6H PRN (Reason: pain) Qty: 15 RF: 0 Referrals: [facility] [Provider Group]
--- NOTE | 2018-05-16 20:16 | ED_ITS ---
HPI - Wound/Laceration General Chief Complaint: Wound/Laceration Stated Complaint: THINKS DRAIN FROM SPLEEN MAY BE PLUGGED Time Seen by Provider: 05/08/18 16:22 Source: patient and other (date night caregiver) Mode of arrival: ambulatory Limitations: no limitations History of Present Illness HPI narrative: Patient has presented to the emergency department today because he would like to have his PUMA drain removed. His PUMA drain was placed a few weeks ago at [facility], after patient took a fall and ruptured his spleen. Patient and caregiver state that all along, the drain has been putting out brownish fluid, but the amount has gotten less and less. Today, the drain has put out about 5 cc of fluid. Patient denies fevers or abdominal pain. He denies any new injury to the area. He states he has had a mild amount of leakage around the tube site here. He states he has been tried changing the bandage around the site about once a week. He has not followed up with his surgeon or his primary care physician on [facility]. Patient denies other complaints. He states he is tired of having the drain and would like to have it taken out. Related Data Home Medications Medication Instructions Recorded Confirmed famotidine 20 mg PO BID 05/08/18 05/08/18 gabapentin 2 cap PO TID 05/08/18 05/08/18 ibuprofen 1 tab PO TID 05/08/18 05/08/18 lidocaine HCl [Lidocaine Viscous] 05/08/18 [id number] [Creon] 1 cap PO BID 05/08/18 05/08/18 Previous Rx's Medication Instructions Recorded hydrocodone-acetaminophen 1 tab PO Q4-6H PRN #14 tab 03/17/18 ondansetron [Zofran ODT] 4 mg PO Q6H PRN #14 tab 03/17/18 oxycodone-acetaminophen 1 tab PO Q4-6H PRN #15 tab 04/12/18 Allergies Allergy/AdvReac Type Severity Reaction Status Date / Time No Known Drug Allergies Allergy Verified 04/07/18 15:58 Review of Systems Review of Systems All systems reviewed & are unremarkable except as noted in HPI and below Constitutional Denies chills, Denies fever(s), Denies lethargy and Denies weakness Eyes Denies change in vision, Denies eye discharge, Denies irritation and Denies loss of vision ENT Ears, Nose, Mouth, and Throat: Denies change in voice, Denies neck pain and Denies sore throat Cardiovascular Denies chest pain, Denies irregular heart rhythm, Denies lightheadedness, Denies palpitations, Denies dyspnea, Denies dyspnea on exertion and Denies orthopnea Respiratory Denies cough, Denies dyspnea, Denies dyspnea on exertion and Denies wheezing Gastrointestinal Gastrointestinal: Denies abdominal pain, Denies change in bowel habits, Denies diarrhea, Denies nausea and Denies vomiting Genitourinary Denies hematuria, Denies flank pain, Denies urinary incontinence and Denies urinary urgency Musculoskeletal Denies neck pain Integumentary/Breasts Denies pruritus, Denies erythema, Denies rash and Denies wounds Neurologic Denies confusion, Denies loss of vision and Denies weakness Psychiatric Denies anxiety, Denies confusion, Denies depression, Denies homicidal ideation and Denies suicidal ideation Endocrine Denies palpitations Hematologic/Lymphatic Denies easy bruising Allergic/Immunologic Denies wheezing [facility] Medical History Subcapsular hemorrhage of spleen (Acute) Pancreatitis (Acute) Maxillary sinus cancer (Acute) Alcoholism (Acute) Social History Smoking Status: Current every day smoker alcohol intake: current Comment: Surgical history: PUMA drain placement left flank. Exam Initial Vital Signs Initial Vital Signs: Vital Signs Temperature 97.6 F 05/08/18 15:33 Pulse Rate 70 05/08/18 15:33 Respiratory Rate 15 05/08/18 15:33 Blood Pressure 112/73 05/08/18 15:33 Pulse Oximetry 97 05/08/18 15:33 Const General: cooperative and well developed Orientation: alert, awake, oriented x3 and not confused Other: Patient is disheveled. HENME Head: normocephalic and atraumatic Ears: external ears normal and TM's normal bilaterally Nose: external nose normal and No nasal discharge Face and sinus: sinuses nontender, face symmetric, no sinus tenderness and No dry mucous membranes Mouth: oral mucosae normal and moist mucous membranes Teeth and gingiva: dentition normal Throat: tonsils normal and uvula midline Eyes General: appearance normal, both eyes and all related structures Eyelids: eyelids normal Conjunctivae: conjunctivae normal Sclera: sclerae normal Pupils: PERRL EOM: EOM intact bilaterally Neck Neck: normal visual inspection, trachea midline, No lymphadenopathy, No midline deformity and No JVD Lymphatic: No lymphedema Chest Chest: normal inspection of the chest Resp Effort & Inspection: normal respiratory effort, able to speak in complete sentences, no respiratory distress and no use of accessory muscles Auscultation: clear to auscultation bilaterally, no rales, no rhonchi and no wheezes Cardio Rate: regular rate Rhythm: regular rhythm Heart Sounds: no click, no gallops, no murmurs and no rubs Pulses: normal peripheral pulses GI Inspection: non-distended Palpation: soft, no hepatosplenomegaly, No guarding, No pulsatile mass and No tender Other: Patient has a drain in place in his left lateral abdomen. Mild amount of drainage is noted on the bandage, though a very old-appearing and secretions soaked Vaseline gauze is noted to be still wrapped around the drain at the site of exit from the patient's flank. No erythema is noted around the drain site. No drainage is expressible with palpation around the area and the wound in a dependent position. About 10 cc of brownish fluid is noted in the patient's drain bulb. Back/Spine/Pelvis Back: No CVA tenderness Cervical Spine: cervical ROM normal and No pain with cervical ROM Thoracic/Lumbar Spine: thoracic and lumbar spine normal to inspection Skin General: no rashes or lesions noted, No jaundice and No petechiae Neuro General: alert, oriented x3, gait normal and no focal motor deficits Speech: speech normal Extrem General: full ROM, no clubbing, cyanosis or edema, no pedal edema and no calf tenderness Psych Appearance: well kempt Mental Status: mental status grossly normal Attitude: cooperative Thought Content: normal and suicidality Judgment: judgment good Course Course Narrative: Patient was well appearing and once cleaned, his wound site actually looked quite good. I did review his discharge papers, and it was unclear with whom the patient was to follow up at [facility]. He had been instructed to follow up with his primary care physician, but that had not happened. The patient had been instructed to follow up back at [facility] in 2 weeks for likely drain removal, and a general number had been given. We did call [facility] to try to get in touch with the surgery team who had taken care of the patient. Surgeon was paged, but ultimately, after 2 hr, had still not called back. Patient stated he wanted to go home. I did feel this was reasonable, and I discussed with him that most likely the drain indeed is ready to come out, but I do not want to remove the drain without consulting with his surgeon first. I have discussed with the patient and caregiver that it is very important to follow up as directed, as the drain being left in place for too long can become a vector for infection. I have also instructed them that they need to be treated changing the bandage and cleaning the site at least every other day if not daily. We have discussed the usual indications for return, including fever, abdominal pain and redness at the site. MDM - Wound/Laceration Medical Records Attestation: I reviewed the patient's medical records. Discharge Plan Departure Patient Disposition: Home Clinical Impression: Encounter for post surgical wound check Discharge Date/Time: 05/08/18 18:25 Interventions: ED Discharge Assessment Last Done: 05/08/18 18:25 Instructions: DI with Wound Drains Activity Restrictions/Additional Instructions: We have not been able to reach your surgeon at [facility]. Given the complicated nature of your history, it is best not to remove the tube in the emergency department without the surgeons approval. As such, we will have you call the number provided on your papers from [facility] tomorrow, and you can set up the follow-up appointment to have the drain removed, as it does sound like the drainage has decreased enough that you can probably have this done. There is no evidence of infection around the tube site, but you do need to be changing the dressing every day to prevent infection from happening. Prescriptions: No Action ibuprofen 800 mg tablet 1 tab PO TID RF: 0 famotidine 20 mg tablet 20 mg PO BID RF: 0 lidocaine HCl [Lidocaine Viscous] 2 % solution RF: 0 gabapentin 100 mg capsule 2 cap PO TID RF: 0 [id number] [Creon] 12,000-38,000 -60,000 unit capsule,delayed release(DR/EC) 1 cap PO BID RF: 0 hydrocodone-acetaminophen 5-325 mg tablet 1 tab PO Q4-6H PRN (Reason: pain) Qty: 14 RF: 0 ondansetron [Zofran ODT] 4 mg tablet,disintegrating 4 mg PO Q6H PRN (Reason: nausea and vomiting) Qty: 14 RF: 0 oxycodone-acetaminophen 10-325 mg tablet 1 tab PO Q4-6H PRN (Reason: pain) Qty: 15 RF: 0 Referrals: [facility] [Provider Group]
== END 2018-05-08 18:25 | disposition home or self-care (01) ==
PROVIDERS: Emergency Provider Emergency Medicine
DX: Z48.89 Encounter for other specified surgical aftercare (principal)
CPT/HCPCS: 99281; 99283

== ENCOUNTER 2018-07-06 08:05 | Emergency (ER) | payer OTHER, MEDICAID, SELFPAY ==
[2018-07-06] VITALS (12 sets, daily range): BP systolic 116–153; BP diastolic 64–118; PULSE 50–89; RESP 10–18; TEMP 36.8; O2SAT 19–100; BMI 19.5
--- NOTE | 2018-07-06 08:22 | ED.PEDGIA ---
HPI - Pediatric GI General Chief Complaint: Abdominal Pain Stated Complaint: Panic attack Time Seen by Provider: 07/06/18 08:08 Source: patient and EMS Mode of arrival: EMS Limitations: no limitations History of Present Illness HPI narrative: This is a 58-year-old male who comes to the emergency department with complaint of anxiety and abdominal pain. Patient states that he started having increasing abdominal pain last night. He had a splenectomy about 1-2 weeks ago he states this was for fluid around the spleen. He states initially he had a drain but that was not improving symptoms so he had a splenectomy. 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 Patient has not had any fevers, he did run out of his hydrocodone 2 or 3 days ago and his pain was not controlled but became worse last night. Patient states that he started having some vomiting which looks like clear fluid. He has been having diarrhea 5-6 times daily since the surgery. No black or blood in the stools. He denies any fevers. He denies any urinary issues. He denies any other medical issues currently he is taking Creon. As well as gabapentin and mirtazapine. Patient has follow-up with Dr. Vidal who is a new primary care he is establishing with. He also has follow-up with his surgeon in the next 3 or 4 days. Related Data Home Medications Medication Instructions Recorded Confirmed famotidine 20 mg PO BID 05/08/18 07/06/18 gabapentin 2 cap PO TID 05/08/18 07/06/18 ibuprofen 1 tab PO TID 05/08/18 05/23/18 lidocaine HCl [Lidocaine Viscous] 05/08/18 05/23/18 siztba-zbykrqhr-agaqeqf [Creon] 1 cap PO BID 05/08/18 07/06/18 Previous Rx's Medication Instructions Recorded hydrocodone-acetaminophen 1 tab PO Q4-6H PRN #14 tab 03/17/18 ondansetron [Zofran ODT] 4 mg PO Q6H PRN #14 tab 03/17/18 oxycodone-acetaminophen 1 tab PO Q4-6H PRN #15 tab 04/12/18 hydrocodone-acetaminophen [[place]] 1 tab PO Q4-6H PRN #14 tab 07/06/18 levofloxacin [Levaquin] 500 mg PO DAILY #7 tab 07/06/18 ondansetron HCl [Zofran] 4 mg PO QID PRN #10 tab 07/06/18 Allergies Allergy/AdvReac Type Severity Reaction Status Date / Time No Known Drug Allergies Allergy Verified 05/23/18 13:09 Pediatric Review of Systems All systems ED: reviewed and negative except as stated Constitutional: Denies fever and chills Cardiovascular: Reports chest pain Respiratory: Reports dyspnea Gastrointestinal: Reports abdominal pain, nausea, vomiting and diarrhea; Denies encopresis and other (melena/hematochezia) Genitourinary: Denies dysuria Musculoskeletal: Denies back pain Integumentary: Reports other (healing incisions); Denies rash Psychiatric: Reports other (anxiety) [facility] Medical History Subcapsular hemorrhage of spleen (Acute) Pancreatitis (Acute) Maxillary sinus cancer (Acute) Alcoholism (Acute) Surgical History Post-splenectomy (Acute) Social History Smoking Status: Current every day smoker alcohol intake: former substance use type: does not use Pediatric Exam GEN: Thin male that appears older than stated age, alert and oriented x 3, patient appears to be in mild distress. HEENT: Atraumatic, pupils are equal round reactive to light, extraocular movements are intact, nares are clear, moist mucous membranes. HEART: Regular rate and rhythm without murmur, clicks, rubs. No carotid bruits, pulses are equal in upper and lower extremities LUNGS:Lungs clear to auscultation, no wheezes, rales, crackles, chest moves symmetrically, no tachypnea, no accessory muscle use. Patient speaks in full sentences. ABD:bowel sounds normal, soft, left-sided tenderness greater on the left upper quadrant but mildly tender on the left lower as well, no guarding, rebound, rigidity, no masses noted, no hepatosplenomegaly, no distention. Patient has incision that is 6 cm and appears healing over the left upper quadrant. There is also a healing incision that appears consistent with prior drain placement. There are no signs of erythema, swelling, the incision themselves are nontender. :No CVA tenderness MSCL: Non-tender, no muscle atrophy NEURO:CN 2-12 intact, sensation normal Initial Vital Signs Initial Vital Signs: Vital Signs Temperature 98.2 F 07/06/18 08:05 Pulse Rate 57 L 07/06/18 08:05 Respiratory Rate 14 07/06/18 08:05 Blood Pressure 125/75 07/06/18 08:05 Pulse Oximetry 100 07/06/18 08:05 General Limitations: no limitations Course Orders Ordered: ED Orders 07/06/18 08:21 CT abdomen pelvis w con Stat 07/06/18 08:33 Complete Blood Count AUTO DIFF Stat Comprehensive Metabolic Panel Stat Lipase Stat Discontinued Medications Sodium Chloride (Normal Saline 0.9%) 1,000 mls @ 1,000 mls/hr IV BOLUS ONE Stop: 07/06/18 09:19 Last Infusion: 07/06/18 11:52 Dose: 0 mls/hr Infusion: 07/06/18 10:26 Dose: 1,000 mls/hr Infusion: 07/06/18 09:28 Dose: 0 mls/hr Admin: 07/06/18 09:05 Dose: 1,000 mls/hr Ceftriaxone Sodium/Dextrose (Rocephin) 1 gm in 50 mls @ 100 mls/hr IV NOW ONE Stop: 07/06/18 12:52 Last Infusion: 07/06/18 14:04 Dose: 0 mls/hr Admin: 07/06/18 12:41 Dose: 100 mls/hr Metronidazole (Flagyl) 500 mg in 100 mls @ 100 mls/hr IV NOW ONE Stop: 07/06/18 13:23 Last Infusion: 07/06/18 14:24 Dose: 0 mls/hr Admin: 07/06/18 12:41 Dose: 100 mls/hr Morphine Sulfate (Morphine) 4 mg IV NOW ONE Stop: 07/06/18 08:21 Last Admin: 07/06/18 09:05 Dose: 4 mg Morphine Sulfate (Morphine Sulfate) 4 mg IV NOW ONE Stop: 07/06/18 11:55 Last Admin: 07/06/18 14:25 Dose: Morphine Sulfate (Morphine Sulfate) 4 mg IV NOW ONE Stop: 07/06/18 11:58 Last Admin: 07/06/18 11:58 Dose: 4 mg Ondansetron HCl (Zofran) 4 mg IV NOW ONE Stop: 07/06/18 08:21 Last Admin: 07/06/18 09:05 Dose: 4 mg Vital Signs - 8 hr 07/06/18 08:05 07/06/18 08:20 07/06/18 08:50 Temperature 98.2 F Pulse Rate 57 L Respiratory Rate 14 Blood Pressure 125/75 Blood Pressure [Right Arm] 116/67 120/71 Pulse Oximetry 100 07/06/18 09:00 07/06/18 09:09 07/06/18 10:19 Temperature Pulse Rate 54 L 56 L 52 L Respiratory Rate 18 11 L Blood Pressure Blood Pressure [Right Arm] 120/71 Pulse Oximetry 100 100 100 07/06/18 10:30 07/06/18 10:40 07/06/18 11:00 Temperature Pulse Rate 89 72 Respiratory Rate 15 13 Blood Pressure Blood Pressure [Right Arm] 122/81 130/77 116/64 Pulse Oximetry 19 L 98 07/06/18 12:02 07/06/18 13:30 07/06/18 14:00 Temperature Pulse Rate 80 80 50 L Respiratory Rate 11 L 15 10 L Blood Pressure Blood Pressure [Right Arm] 153/88 H 139/118 H 118/66 Pulse Oximetry 99 Medical Decision Making Lab Data Lab results reviewed: Yes I reviewed the patient's lab results. Result diagrams: 07/06/18 08:33 07/06/18 08:33 Lab Results 07/06/18 07/06/18 Range/Units 08:33 08:33 WBC 7.3 (4.5-11.0) X10^3/uL RBC 4.20 L (4.5-5.9) X10^6/uL Hgb 13.0 L (13.5-17.5) g/dL Hct 38.4 L (41-53) % MCV 91.2 (80-100) fL MCH 30.9 (26-34) PG MCHC 33.9 (30-36) % RDW 16.7 H (11.6-14.8) % Plt Count 401 H (150-400) X10^3/uL Neut % (Auto) 65.5 (50-75) % Lymph % (Auto) 21.5 L (25-40) % Faulk % (Auto) 10.1 (3-14) % Eos % (Auto) 1.3 L (2-4) % Baso % (Auto) 1.6 (0-2) % Neut # (Auto) 4800 (6255-7725) /uL Sodium 131 L (137-145) mmol/L Potassium 4.6 (3.4-5.1) mmol/L Chloride 92 L (98-107) mmol/L Carbon Dioxide 28 (22-32) mmol/L BUN 6 L (9-20) mg/dL Creatinine 0.70 (0.66-1.25) mg/dL Estimated GFR > 60.0 (>60) mL/min BUN/Creatinine Ratio 8.6 (6-22) Glucose 89 (70-100) mg/dL Calcium 8.2 L (8.4-10.2) mg/dL Total Bilirubin < 0.1 L (0.2-1.3) mg/dL AST 66 H (17-59) IU/L ALT 31 (21-72) IU/L Alkaline Phosphatase 91 (38-126) U/L Total Protein 6.7 (6.3-8.2) g/dL Albumin 3.5 (3.5-5.0) g/dL Globulin 3.2 (1.7-4.1) g/dL Albumin/Globulin Ratio 1.1 (1.0-2.8) Lipase 109 (23-300) U/L Urine Dip Bedside Urine Glucose Negative Bedside Urine Bilirubin - Negative Bedside Urine Ketone - Negative Urine Specific [place] 1.010 Bedside Urine Occult Blood - Negative Bedside Urine pH 6.5 Bedside Urine Protein - Negative Bedside Urine Urobilinogen - Negative Bedside Urine Nitrite - Negative Bedside Urine Leukocytes - Negative Esterase Point of care testing: Urine Dip Bedside Urine Glucose Negative Bedside Urine Bilirubin - Negative Bedside Urine Ketone - Negative Urine Specific [place] 1.010 Bedside Urine Occult Blood - Negative Bedside Urine pH 6.5 Bedside Urine Protein - Negative Bedside Urine Urobilinogen - Negative Bedside Urine Nitrite - Negative Bedside Urine Leukocytes - Negative Esterase Imaging Data CT scan - abdomen: Radiologist's impression: 1 Diagnostics DATE TYPE STATUS AUTHOR Hx 07/06/18 08:21 Kae Del Rio 04/12/18 18:41 Sree Landa 04/07/18 16:45 Kae Del Rio 04/02/18 03:46 Kae Del Rio 04/02/18 03:17 Chris Rowe 03/17/18 20:02 Donald Santos 03/17/18 17:47 Donald Santos Bjorn 58, [id number]/06/[id number] [facility] ER, ED - Main ED: R07 180.34cm 63.503kg BMI: 19.5kg/m? Abdominal Pain Search Chart No Known Drug Allergies ONSET Today 11:[address] [address] [address] Scan Report Signed Patient: Wicho HutsonMR#: [id number] : 9Acct:[id number] Age/Sex: 58 / MDate of Service: 07/06/18 Loc: ED Accession Number: [id number] Procedure: CT abdomen pelvis w con Ordering Provider: Melba Wang D.O. PROCEDURE: CT ABDOMEN PELVIS W CON INDICATIONS: abdominal pain, vomiting. had splenctomy for fluid surround TECHNIQUE: After the administration of intravenous contrast, 5 mm thick sections acquired from the diaphragm to the symphysis. 5 mm coronal and sagittal reformats were acquired. For radiation dose reduction, the following was used: automated exposure control, adjustment of mA and/or kV according to patient size. COMPARISON: [facility], CT, CT ABDOMEN PELVIS W CON, 04/07/2018, 17:27. FINDINGS: Image quality: Limited by absence of oral contrast in patient with low body mass index. ABDOMEN: Lung bases: Patchy tree in bud opacities have developed in the lung bases bilaterally concerning for infectious process. Heart size is normal. Solid organs: Liver is normal in size and enhancement. Gallbladder is within normal limits. Biliary system is non dilated. Pancreas enhances normally. Postsurgical changes compatible with splenectomy noted. No adrenal nodules. Kidneys demonstrate normal size and enhancement, without hydronephrosis. Peritoneum and bowel: Dilated loops of proximal small bowel are noted. Loops of proximal small bowel are dilated to 3.4 cm. Transition zone is in the proximal jejunum in the left upper quadrant (series 2, image 38). Smaller focal fluid collections noted in the splenic fossa that measures 5.0 x 2.7 x 1.3 cm. Air-fluid levels noted within the splenic fossa off fluid collection. Inflammatory changes versus postsurgical scarring noted in the splenic fossa adjacent to the wall of fluid collection. Nodes and vessels: No retroperitoneal or mesenteric adenopathy by size criteria. Aorta and inferior vena cava are normal in size. Scattered atherosclerotic calcifications involving the abdominal and pelvic vasculature. Miscellaneous: No ventral hernias. PELVIS: Genitourinary: Bladder wall thickness is normal. Miscellaneous: No inguinal hernias or adenopathy. Bones: No suspicious bony lesions. No vertebral body compression fractures. Spine degenerative disc disease and facet arthropathy. Large Schmorl's node noted in the L1 vertebral body. IMPRESSION: 1. Status post splenectomy. 2. Walled off fluid collection with internal air fluid level and adjacent inflammatory changes in the splenic fossa the region of splenectomy postsurgical changes. Findings highly suspicious for small abscess. 3. Mild dilatation of proximal loops of small bowel with transition zone in the proximal ileum which could represent ileus versus early or partial small bowel obstruction. 4. Bibasilar tree in bud opacities highly suspicious for infection. 5. Findings telephoned to Dr. Wang on 07/06/2018 at 1111 hrs. Dictated by: Kae Del Rio MD, PhD on 07/06/2018 at 11:00 Approved by: Kae Del Rio MD, PhD on 07/06/2018 at 11:13 [facility] Narrative Medical decision making narrative: Patient has been seen here before he had a bleed around the spleen and had been transferred to another facility. Per patient he had a drain and then ultimately had splenectomy. Patient returned today because he has had increasing pain although he has also run out of his pain medication in the last several days he did have some vomiting which was new overnight. Discussed with patient plan to get imaging as he has had recent surgery and with increasing pain and emesis to make sure he has not had any new changes or issues in his abdomen. Will also get lab work and medication for pain and nausea. Patient does have a history of alcoholism but states that he is not drinking currently. Dr. Del Rio called CT the results to myself. Patient has abscess on abdominal imaging that is slightly improved in size from [facility]. Patient did not have drainable abscess which was elevated evaluated by Interventional Radiology. Patient was discharged home. They did not start him on antibiotics and felt that he did not need to be on them at that time. He did have an appointment on July 03 which he missed. Patient had his surgery followed by having his drain pulled on 06/19 and then was seen again on 06/20 and discharged on 06/21 for the same issue. He also had inflammatory changes around that area as well. Unclear if he had any changes could significant with pneumonia. After speaking with Dr. Chau and getting the rest of this information which patient had not shared decision was made that patient should be seen in the clinic on Sunday morning for re-evaluation as he stable, his white count is normal today and down from a white count of 15 on the 21 of June. And he could be started on antibiotics for pneumonia but not necessarily for the abscess. The clinic will contact the patient but I will also give him the contact information as well. Patient family called multiple times. They were informed he missed appt on , has appt for Sunday and they state they can get him there. Discussed findings, [facility] findings, plan for abx for pneumonia treatment. Discharge Plan Departure Patient Disposition: Home Clinical Impression: Abscess, intra-abdominal, postoperative, Post-splenectomy, Pneumonia Discharge Date/Time: 07/06/18 15:01 Interventions: ED Discharge Assessment Last Done: 07/06/18 14:52 Instructions: DI for Intra-Abdominal Abscess Activity Restrictions/Additional Instructions: Follow up Sunday with General Surgery at [facility]. You missed your appointment on 07/03 and they would like to see you this Sunday. You should expect a phone call but call [phone]. Take medications as prescribed for pain, this medication can make you sleepy, do not drive, perform hazards activities or make any major decisions while taking it. Take antibiotics until they are gone. Return to ER for fevers greater than 100.4F, persistent vomiting, worsening shortness of breath, worsening pain, no bowel movements or flatus, black or bloody stools or other new or concerning symptoms. Prescriptions: New levofloxacin [Levaquin] 500 mg tablet 500 mg PO DAILY Qty: 7 RF: 0 hydrocodone-acetaminophen [[place]] 10-325 mg tablet 1 tab PO Q4-6H PRN (Reason: pain) Qty: 14 RF: 0 ondansetron HCl [Zofran] 4 mg tablet 4 mg PO QID PRN (Reason: nausea and vomiting) Qty: 10 RF: 0 No Action ibuprofen 800 mg tablet 1 tab PO TID RF: 0 famotidine 20 mg tablet 20 mg PO BID RF: 0 lidocaine HCl [Lidocaine Viscous] 2 % solution RF: 0 gabapentin 100 mg capsule 2 cap PO TID RF: 0 tpealt-[id number]-drgqdvp [Creon] 12,000-38,000 -60,000 unit capsule,delayed release(DR/EC) 1 cap PO BID RF: 0 hydrocodone-acetaminophen 5-325 mg tablet 1 tab PO Q4-6H PRN (Reason: pain) Qty: 14 RF: 0 ondansetron [Zofran ODT] 4 mg tablet,disintegrating 4 mg PO Q6H PRN (Reason: nausea and vomiting) Qty: 14 RF: 0 oxycodone-acetaminophen 10-325 mg tablet 1 tab PO Q4-6H PRN (Reason: pain) Qty: 15 RF: 0
--- NOTE | 2018-07-06 08:24 | PC.NURSE ---
c/o soreness. incision site clean,dry, intact, pt with tendernesw with palpation.
--- NOTE | 2018-07-06 08:25 | ED_ITS ---
HPI - Pediatric GI General Chief Complaint: Abdominal Pain Stated Complaint: Panic attack Time Seen by Provider: 07/06/18 08:08 Source: patient and EMS Mode of arrival: EMS Limitations: no limitations History of Present Illness HPI narrative: This is a 58-year-old male who comes to the emergency department with complaint of anxiety and abdominal pain. Patient states that he started having increasing abdominal pain last night. He had a splenectomy about 1-2 weeks ago he states this was for fluid around the spleen. He states initially he had a drain but that was not improving symptoms so he had a splenectomy. 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 Patient has not had any fevers, he did run out of his hydrocodone 2 or 3 days ago and his pain was not controlled but became worse last night. Patient states that he started having some vomiting which looks like clear fluid. He has been having diarrhea 5-6 times daily since the surgery. No black or blood in the stools. He denies any fevers. He denies any urinary issues. He denies any other medical issues currently he is taking Creon. As well as gabapentin and mirtazapine. Patient has follow-up with Dr. Vidal who is a new primary care he is establishing with. He also has follow-up with his surgeon in the next 3 or 4 days. Related Data Home Medications Medication Instructions Recorded Confirmed famotidine 20 mg PO BID 05/08/18 07/06/18 gabapentin 2 cap PO TID 05/08/18 07/06/18 ibuprofen 1 tab PO TID 05/08/18 05/23/18 lidocaine HCl [Lidocaine Viscous] 05/08/18 05/23/18 [id number] [Creon] 1 cap PO BID 05/08/18 07/06/18 Previous Rx's Medication Instructions Recorded hydrocodone-acetaminophen 1 tab PO Q4-6H PRN #14 tab 03/17/18 ondansetron [Zofran ODT] 4 mg PO Q6H PRN #14 tab 03/17/18 oxycodone-acetaminophen 1 tab PO Q4-6H PRN #15 tab 04/12/18 hydrocodone-acetaminophen [Hamilton] 1 tab PO Q4-6H PRN #14 tab 07/06/18 levofloxacin [Levaquin] 500 mg PO DAILY #7 tab 07/06/18 ondansetron HCl [Zofran] 4 mg PO QID PRN #10 tab 07/06/18 Allergies Allergy/AdvReac Type Severity Reaction Status Date / Time No Known Drug Allergies Allergy Verified 05/23/18 13:09 Pediatric Review of Systems All systems ED: reviewed and negative except as stated Constitutional: Denies fever and chills Cardiovascular: Reports chest pain Respiratory: Reports dyspnea Gastrointestinal: Reports abdominal pain, nausea, vomiting and diarrhea; Denies encopresis and other (melena/hematochezia) Genitourinary: Denies dysuria Musculoskeletal: Denies back pain Integumentary: Reports other (healing incisions); Denies rash Psychiatric: Reports other (anxiety) [facility] Medical History Subcapsular hemorrhage of spleen (Acute) Pancreatitis (Acute) Maxillary sinus cancer (Acute) Alcoholism (Acute) Surgical History Post-splenectomy (Acute) Social History Smoking Status: Current every day smoker alcohol intake: former substance use type: does not use Pediatric Exam GEN: Thin male that appears older than stated age, alert and oriented x 3, patient appears to be in mild distress. HEENT: Atraumatic, pupils are equal round reactive to light, extraocular movements are intact, nares are clear, moist mucous membranes. HEART: Regular rate and rhythm without murmur, clicks, rubs. No carotid bruits , pulses are equal in upper and lower extremities LUNGS:Lungs clear to auscultation, no wheezes, rales, crackles, chest moves symmetrically, no tachypnea, no accessory muscle use. Patient speaks in full sentences. ABD:bowel sounds normal, soft, left-sided tenderness greater on the left upper quadrant but mildly tender on the left lower as well, no guarding, rebound, rigidity, no masses noted, no hepatosplenomegaly, no distention. Patient has incision that is 6 cm and appears healing over the left upper quadrant. There is also a healing incision that appears consistent with prior drain placement. There are no signs of erythema, swelling, the incision themselves are nontender. :No CVA tenderness MSCL: Non-tender, no muscle atrophy NEURO:CN 2-12 intact, sensation normal Initial Vital Signs Initial Vital Signs: Vital Signs Temperature 98.2 F 07/06/18 08:05 Pulse Rate 57 L 07/06/18 08:05 Respiratory Rate 14 07/06/18 08:05 Blood Pressure 125/75 07/06/18 08:05 Pulse Oximetry 100 07/06/18 08:05 General Limitations: no limitations Course Orders Ordered: ED Orders 07/06/18 08:21 CT abdomen pelvis w con Stat 07/06/18 08:33 Complete Blood Count AUTO DIFF Stat Comprehensive Metabolic Panel Stat Lipase Stat Discontinued Medications Sodium Chloride (Normal Saline 0.9%) 1,000 mls @ 1,000 mls/hr IV BOLUS ONE Stop: 07/06/18 09:19 Last Infusion: 07/06/18 11:52 Dose: 0 mls/hr Infusion: 07/06/18 10:26 Dose: 1,000 mls/hr Infusion: 07/06/18 09:28 Dose: 0 mls/hr Admin: 07/06/18 09:05 Dose: 1,000 mls/hr Ceftriaxone Sodium/Dextrose (Rocephin) 1 gm in 50 mls @ 100 mls/hr IV NOW ONE Stop: 07/06/18 12:52 Last Infusion: 07/06/18 14:04 Dose: 0 mls/hr Admin: 07/06/18 12:41 Dose: 100 mls/hr Metronidazole (Flagyl) 500 mg in 100 mls @ 100 mls/hr IV NOW ONE Stop: 07/06/18 13:23 Last Infusion: 07/06/18 14:24 Dose: 0 mls/hr Admin: 07/06/18 12:41 Dose: 100 mls/hr Morphine Sulfate (Morphine) 4 mg IV NOW ONE Stop: 07/06/18 08:21 Last Admin: 07/06/18 09:05 Dose: 4 mg Morphine Sulfate (Morphine Sulfate) 4 mg IV NOW ONE Stop: 07/06/18 11:55 Last Admin: 07/06/18 14:25 Dose: Morphine Sulfate (Morphine Sulfate) 4 mg IV NOW ONE Stop: 07/06/18 11:58 Last Admin: 07/06/18 11:58 Dose: 4 mg Ondansetron HCl (Zofran) 4 mg IV NOW ONE Stop: 07/06/18 08:21 Last Admin: 07/06/18 09:05 Dose: 4 mg Vital Signs - 8 hr 07/06/18 08:05 07/06/18 08:20 07/06/18 08:50 Temperature 98.2 F Pulse Rate 57 L Respiratory Rate 14 Blood Pressure 125/75 Blood Pressure [Right Arm] 116/67 120/71 Pulse Oximetry 100 07/06/18 09:00 07/06/18 09:09 07/06/18 10:19 Temperature Pulse Rate 54 L 56 L 52 L Respiratory Rate 18 11 L Blood Pressure Blood Pressure [Right Arm] 120/71 Pulse Oximetry 100 100 100 07/06/18 10:30 07/06/18 10:40 07/06/18 11:00 Temperature Pulse Rate 89 72 Respiratory Rate 15 13 Blood Pressure Blood Pressure [Right Arm] 122/81 130/77 116/64 Pulse Oximetry 19 L 98 07/06/18 12:02 07/06/18 13:30 07/06/18 14:00 Temperature Pulse Rate 80 80 50 L Respiratory Rate 11 L 15 10 L Blood Pressure Blood Pressure [Right Arm] 153/88 H 139/118 H 118/66 Pulse Oximetry 99 Medical Decision Making Lab Data Lab results reviewed: Yes I reviewed the patient's lab results. Result diagrams: 07/06/18 08:33 07/06/18 08:33 Lab Results 07/06/18 07/06/18 Range/Units 08:33 08:33 WBC 7.3 (4.5-11.0) X10^3/uL RBC 4.20 L (4.5-5.9) X10^6/uL Hgb 13.0 L (13.5-17.5) g/dL Hct 38.4 L (41-53) % MCV 91.2 (80-100) fL MCH 30.9 (26-34) PG MCHC 33.9 (30-36) % RDW 16.7 H (11.6-14.8) % Plt Count 401 H (150-400) X10^3/uL Neut % (Auto) 65.5 (50-75) % Lymph % (Auto) 21.5 L (25-40) % [place] % (Auto) 10.1 (3-14) % Eos % (Auto) 1.3 L (2-4) % Baso % (Auto) 1.6 (0-2) % Neut # (Auto) 4800 (9659-4147) /uL Sodium 131 L (137-145) mmol/L Potassium 4.6 (3.4-5.1) mmol/L Chloride 92 L (98-107) mmol/L Carbon Dioxide 28 (22-32) mmol/L BUN 6 L (9-20) mg/dL Creatinine 0.70 (0.66-1.25) mg/dL Estimated GFR > 60.0 (>60) mL/min BUN/Creatinine Ratio 8.6 (6-22) Glucose 89 (70-100) mg/dL Calcium 8.2 L (8.4-10.2) mg/dL Total Bilirubin < 0.1 L (0.2-1.3) mg/dL AST 66 H (17-59) IU/L ALT 31 (21-72) IU/L Alkaline Phosphatase 91 (38-126) U/L Total Protein 6.7 (6.3-8.2) g/dL Albumin 3.5 (3.5-5.0) g/dL Globulin 3.2 (1.7-4.1) g/dL Albumin/Globulin Ratio 1.1 (1.0-2.8) Lipase 109 (23-300) U/L Urine Dip Bedside Urine Glucose Negative Bedside Urine Bilirubin - Negative Bedside Urine Ketone - Negative Urine Specific [place] 1.010 Bedside Urine Occult Blood - Negative Bedside Urine pH 6.5 Bedside Urine Protein - Negative Bedside Urine Urobilinogen - Negative Bedside Urine Nitrite - Negative Bedside Urine Leukocytes - Negative Esterase Point of care testing: Urine Dip Bedside Urine Glucose Negative Bedside Urine Bilirubin - Negative Bedside Urine Ketone - Negative Urine Specific [place] 1.010 Bedside Urine Occult Blood - Negative Bedside Urine pH 6.5 Bedside Urine Protein - Negative Bedside Urine Urobilinogen - Negative Bedside Urine Nitrite - Negative Bedside Urine Leukocytes - Negative Esterase Imaging Data CT scan - abdomen: Radiologist's impression: 1 Diagnostics DATE TYPE STATUS AUTHOR Hx 07/06/18 08:21 Kae Del Rio 04/12/18 18:41 Sree Landa 04/07/18 16:45 Kae Del Rio 04/02/18 03:46 Kae Del Rio 04/02/18 03:17 Chris Rowe 03/17/18 20:02 Donald Santos 03/17/18 17:47 Donald Santos Bjorn 58, [id number] PRE ER, ED - Main ED: R07 180.34cm 63.503kg BMI: 19.5kg/m? Abdominal Pain Search Chart No Known Drug Allergies ONSET Today 11:[address] [address] [address] Scan Report Signed Patient: Wicho HutsonMR#: [id number] : 9Acct:[id number] Age/Sex: 58 / MDate of Service: 07/06/18 Loc: ED Accession Number: [id number] Procedure: CT abdomen pelvis w con Ordering Provider: Melba Wang D.O. PROCEDURE: CT ABDOMEN PELVIS W CON INDICATIONS: abdominal pain, vomiting. had splenctomy for fluid surround TECHNIQUE: After the administration of intravenous contrast, 5 mm thick sections acquired from the diaphragm to the symphysis. 5 mm coronal and sagittal reformats were acquired. For radiation dose reduction, the following was used: automated exposure control, adjustment of mA and/or kV according to patient size. COMPARISON: [facility], CT, CT ABDOMEN PELVIS W CON, 04/07/2018, 17:27. FINDINGS: Image quality: Limited by absence of oral contrast in patient with low body mass index. ABDOMEN: Lung bases: Patchy tree in bud opacities have developed in the lung bases bilaterally concerning for infectious process. Heart size is normal. Solid organs: Liver is normal in size and enhancement. Gallbladder is within normal limits. Biliary system is non dilated. Pancreas enhances normally. Postsurgical changes compatible with splenectomy noted. No adrenal nodules. Kidneys demonstrate normal size and enhancement, without hydronephrosis. Peritoneum and bowel: Dilated loops of proximal small bowel are noted. Loops of proximal small bowel are dilated to 3.4 cm. Transition zone is in the proximal jejunum in the left upper quadrant (series 2, image 38). Smaller focal fluid collections noted in the splenic fossa that measures 5.0 x 2.7 x 1.3 cm. Air-fluid levels noted within the splenic fossa off fluid collection. Inflammatory changes versus postsurgical scarring noted in the splenic fossa adjacent to the wall of fluid collection. Nodes and vessels: No retroperitoneal or mesenteric adenopathy by size criteria. Aorta and inferior vena cava are normal in size. Scattered atherosclerotic calcifications involving the abdominal and pelvic vasculature. Miscellaneous: No ventral hernias. PELVIS: Genitourinary: Bladder wall thickness is normal. Miscellaneous: No inguinal hernias or adenopathy. Bones: No suspicious bony lesions. No vertebral body compression fractures. Spine degenerative disc disease and facet arthropathy. Large Schmorl's node noted in the L1 vertebral body. IMPRESSION: 1. Status post splenectomy. 2. Walled off fluid collection with internal air fluid level and adjacent inflammatory changes in the splenic fossa the region of splenectomy postsurgical changes. Findings highly suspicious for small abscess. 3. Mild dilatation of proximal loops of small bowel with transition zone in the proximal ileum which could represent ileus versus early or partial small bowel obstruction. 4. Bibasilar tree in bud opacities highly suspicious for infection. 5. Findings telephoned to Dr. Wang on 07/06/2018 at 1111 hrs. Dictated by: Kae Del Rio MD, PhD on 07/06/2018 at 11:00 Approved by: Kae Del Rio MD, PhD on 07/06/2018 at 11:13 [facility] Narrative Medical decision making narrative: Patient has been seen here before he had a bleed around the spleen and had been transferred to another facility. Per patient he had a drain and then ultimately had splenectomy. Patient returned today because he has had increasing pain although he has also run out of his pain medication in the last several days he did have some vomiting which was new overnight. Discussed with patient plan to get imaging as he has had recent surgery and with increasing pain and emesis to make sure he has not had any new changes or issues in his abdomen. Will also get lab work and medication for pain and nausea. Patient does have a history of alcoholism but states that he is not drinking currently. Dr. Del Rio called CT the results to myself. Patient has abscess on abdominal imaging that is slightly improved in size from [facility]. Patient did not have drainable abscess which was elevated evaluated by Interventional Radiology. Patient was discharged home. They did not start him on antibiotics and felt that he did not need to be on them at that time. He did have an appointment on July 03 which he missed. Patient had his surgery followed by having his drain pulled on 06/19 and then was seen again on 06/20 and discharged on 06/21 for the same issue. He also had inflammatory changes around that area as well. Unclear if he had any changes could significant with pneumonia. After speaking with Dr. Chau and getting the rest of this information which patient had not shared decision was made that patient should be seen in the clinic on Sunday morning for re-evaluation as he stable, his white count is normal today and down from a white count of 15 on the 21 of June. And he could be started on antibiotics for pneumonia but not necessarily for the abscess. The clinic will contact the patient but I will also give him the contact information as well. Patient family called multiple times. They were informed he missed appt on , has appt for Sunday and they state they can get him there. Discussed findings , [facility] findings, plan for abx for pneumonia treatment. Discharge Plan Departure Patient Disposition: Home Clinical Impression: Abscess, intra-abdominal, postoperative, Post-splenectomy, Pneumonia Discharge Date/Time: 07/06/18 15:01 Interventions: ED Discharge Assessment Last Done: 07/06/18 14:52 Instructions: DI for Intra-Abdominal Abscess Activity Restrictions/Additional Instructions: Follow up Sunday with General Surgery at [facility]. You missed your appointment on 07/03 and they would like to see you this Sunday. You should expect a phone call but call [phone]. Take medications as prescribed for pain, this medication can make you sleepy, do not drive, perform hazards activities or make any major decisions while taking it. Take antibiotics until they are gone. Return to ER for fevers greater than 100.4F, persistent vomiting, worsening shortness of breath, worsening pain, no bowel movements or flatus, black or bloody stools or other new or concerning symptoms. Prescriptions: New levofloxacin [Levaquin] 500 mg tablet 500 mg PO DAILY Qty: 7 RF: 0 hydrocodone-acetaminophen [Hamilton] 10-325 mg tablet 1 tab PO Q4-6H PRN (Reason: pain) Qty: 14 RF: 0 ondansetron HCl [Zofran] 4 mg tablet 4 mg PO QID PRN (Reason: nausea and vomiting) Qty: 10 RF: 0 No Action ibuprofen 800 mg tablet 1 tab PO TID RF: 0 famotidine 20 mg tablet 20 mg PO BID RF: 0 lidocaine HCl [Lidocaine Viscous] 2 % solution RF: 0 gabapentin 100 mg capsule 2 cap PO TID RF: 0 [id number] [Creon] 12,000-38,000 -60,000 unit capsule,delayed release(DR/EC) 1 cap PO BID RF: 0 hydrocodone-acetaminophen 5-325 mg tablet 1 tab PO Q4-6H PRN (Reason: pain) Qty: 14 RF: 0 ondansetron [Zofran ODT] 4 mg tablet,disintegrating 4 mg PO Q6H PRN (Reason: nausea and vomiting) Qty: 14 RF: 0 oxycodone-acetaminophen 10-325 mg tablet 1 tab PO Q4-6H PRN (Reason: pain) Qty: 15 RF: 0
--- NOTE | 2018-07-06 08:26 | PC.NURSE ---
ran out of hydrocodone 2 days ago.
[2018-07-06 09:04] LABS: Add Manual Diff / Slide Review NO; Basophils Percent Auto 1.6 % (0-2); Eosinophils Percent Auto 1.3 % (2-4); Hematocrit 38.4 % (41-53); Lymphocytes Percent Auto 21.5 % (25-40); Mean Corpuscular HGB Conc 33.9 % (30-36); Mean Corpuscular Hemoglobin 30.9 PG (26-34); Mean Corpuscular Volume 91.2 fL (80-100); Monocytes Percent Auto 10.1 % (3-14); Neutrophils Absolute Auto 4800 /uL (3000-5900); Neutrophils Percent Auto 65.5 % (50-75); Platelet Count 401 X10^3/uL (150-400); Red Cell Distribution Width 16.7 % (11.6-14.8); White Blood Cell Count 7.3 X10^3/uL (4.5-11.0)
[2018-07-06] MEDS: SODIUM CHLORIDE 0.9% 1,000 ML 1000 ML IV (09:05)
[2018-07-06] MEDS: ONDANSETRON 4 MG/2 ML INJ IV (09:05)
[2018-07-06] MEDS: MORPHINE 4 MG/ML INJ IV (09:05)
[2018-07-06 09:16] LABS: Alanine Aminotransferase 31 IU/L (21-72); Albumin 3.5 g/dL (3.5-5.0); Albumin Globulin Ratio 1.1 (1.0-2.8); Alkaline Phosphatase 91 U/L (38-126); Aspartate Aminotransferase 66 IU/L (17-59); BUN Creatinine Ratio 8.6 (6-22); Blood Urea Nitrogen 6 mg/dL (9-20); Calcium 8.2 mg/dL (8.4-10.2); Carbon Dioxide 28 mmol/L (22-32); Chloride 92 mmol/L (98-107); Estimated Glomerular Filt Rate > 60.0 mL/min (>60); Globulin 3.2 g/dL (1.7-4.1); Glucose 89 mg/dL (70-100); HEMOLYSIS < 15 (0-50); Lipase 109 U/L (23-300); Potassium 4.6 mmol/L (3.4-5.1); Sodium 131 mmol/L (137-145); Total Protein 6.7 g/dL (6.3-8.2)
[2018-07-06 09:21] LABS: Bilirubin Total < 0.1 mg/dL (0.2-1.3)
--- NOTE | 2018-07-06 09:28 | PC.NURSE ---
states, it worn off, dr baeza notified.
--- NOTE | 2018-07-06 10:43 | PC.NURSE ---
daughter wanted to speak with pt. pt states, to tell her to call her back later. message relayed to the family.
--- NOTE | 2018-07-06 10:49 | PC.NURSE ---
direct care staffer alfred [phone]
[2018-07-06] MEDS: MORPHINE 5 MG/ML INJ 4 MG IV (11:58)
[2018-07-06] MEDS: metroNIDAZOLE 500 MG/100 ML PIGGYBACK 100 MG IV (12:41)
[2018-07-06] MEDS: CEFTRIAXONE 1 GM/50 ML FROZ.PIGGY IV (12:41)
--- NOTE | 2018-07-06 14:21 | PC.NURSE ---
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 states Usually he is taken by taxi, but he doesnt have any money. and they will call back for solutions. dr baeza made aware.
--- NOTE | 2018-07-06 14:44 | PC.NURSE ---
jesse on the phone with pt. , will take uber ride home
--- NOTE | 2018-07-06 15:00 | PC.NURSE ---
Pat daughter [phone] Edil caregiver [phone] isidro [phone]
== END 2018-07-06 15:01 | disposition home or self-care (01) ==
PROVIDERS: Emergency Provider Emergency Medicine
DX: T81.49XA Infection following a procedure, other surgical site, initial encounter (principal); J18.9 Pneumonia, unspecified organism; Z90.81 Acquired absence of spleen
CPT/HCPCS: 36591; 74177; 80053; 81003; 83690; 85025; 96361; 96365; 96366; 96368; 96375; 96376; 99285; J2270; J2405; Q9967